=== PATIENT | male | born 1955 | race Caucasian/White ===

== ENCOUNTER 2025-05-05 09:48 | Inpatient (IN) | payer MEDICARE, MEDICAID, SELFPAY ==
[2025-05-05] VITALS (10 sets, daily range): BP systolic 116–149; BP diastolic 74–90; PULSE 63–95; RESP 16–20; TEMP 36.8–37.2; O2SAT 96–99; BMI 28.5
--- NOTE | 2025-05-05 10:00 | EKG_ITS ---
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: : [id number] Requested By: Giovanni Ortiz Order Number: [id number] Reading MD: Giovanni Ortiz Measurements Intervals [place] Rate: 81 P: 46 IA: 144 QRS: -40 QRSD: 97 T: 46 QT: 328 QTc: 383 Interpretive Statements SINUS RHYTHM LOW QRS VOLTAGE IN PRECORDIAL LEADS [QRS DEFLECTION < 1.0 mV IN CHEST LEADS] MINIMAL VOLTAGE CRITERIA FOR LVH, CONSIDER NORMAL VARIANT [MEETS CRITERIA IN ONE OF: R(aVL), S(V1), R(V5), R(V5/V6)+S(V1)] POSSIBLE ANTERIOR MYOCARDIAL INFARCTION , PROBABLY OLD [30 ms Q WAVE IN V3/V4, OR R < 0.2 mV IN V4] INFERIOR MYOCARDIAL INFARCTION , PROBABLY OLD [40+ ms Q WAVE AND/OR ST/T ABNORMALITY IN II/aVF] No previous ECG available for comparison /store/S0/[id number].pdf
--- NOTE | 2025-05-05 10:01 | PD.EDRME ---
Rapid Medical Screening Exam E Arrival date/time: 05/05/25 09:48 70-year-old male with a history of hypertension, hyperlipidemia presents to the emergency room with an elevated potassium level. Patient was sent over by his primary care provider for a potassium level of 6.6. I have greeted and performed a focused initial assessment of this patient. A comprehensive ED assessment and evaluation of the patient, analysis of all test results, and completion of the medical decision making process will be conducted by additional ED providers. Chief Complaint: General Adult/Misc Complain Vital signs: Vital Signs Temperature 98.9 F 05/05/25 09:56 Pulse Rate 81 05/05/25 09:56 Respiratory Rate 19 05/05/25 09:56 Blood Pressure 116/74 05/05/25 09:56 Pulse Oximetry (%) 96 05/05/25 09:56 Oxygen Delivery Method Room Air 05/05/25 09:56 Vital signs reviewed by provider: Yes
[2025-05-05 10:49] LABS: Basophils # (Auto) 0.1 Thou/mm3 (0.0-0.2); Basophils % (Auto) 1 % (0-2.5); Eosinophils # (Auto) 0.1 Thou/mm3 (0.0-0.5); Eosinophils % (Auto) 1 % (0-10); Hematocrit 40.6 % (41.0-53.0); Hemoglobin 13.0 g/dL (13.5-16.0); Immature Granulocytes Auto 0.02 Thou/mm3 (0.00-0.00); Lymphocytes # (Auto) 1.1 Thou/mm3 (1.0-4.8); Lymphocytes % (Auto) 12 % (10-50); Mean Corpuscular HGB Conc 32.0 g/dl (31.0-37.0); Mean Corpuscular Hemoglobin 29.4 pg (25.0-35.0); Mean Corpuscular Volume 92 fL (80-100); Monocytes # (Auto) 1.2 Thou/mm3 (0.0-0.8); Monocytes % (Auto) 13 % (0-12); Neutrophils # (Auto) 6.7 Thou/mm3 (1.8-7.7); Neutrophils % (Auto) 73 % (37-80); Nucleated Red Blood Cell # 0.00 Thou/mm3 (0.00-0.00); Nucleated Red Blood Cell % 0 /100 WBC (0); Platelet Count 266 Thou/mm3 (140-440); RDW Standard Deviation 49.7 fL (35.1-43.9); Red Blood Count 4.42 Miln/mm3 (4.50-5.90); White Blood Count 9.2 Thou/mm3 (3.8-10.6)
[2025-05-05 11:02] LABS: INR 1.0 (0.9-1.3); Partial Thromboplastin Time 28.2 Seconds (22.0-36.0); Prothrombin Time 10.8 Seconds (9.0-12.2)
[2025-05-05 11:06] LABS: B-Type Natriuretic Peptide 37 pg/mL (0-100)
[2025-05-05 11:08] LABS: Alanine Aminotransferase 24 U/L (10-49); Albumin, Serum 4.4 gm/dL (3.4-4.8); Albumin/Globulin Ratio 1.2 (1.2-2.2); Alkaline Phosphatase 114 U/L (46-116); Anion Gap 9 (7-16); Aspartate Amino Transferase 16 U/L (0-34); BUN/Creatinine Ratio 15 Ratio (12-20); Bilirubin,Total 0.3 mg/dL (0.3-1.2); Blood Urea Nitrogen 45 mg/dL (9-23); Calcium 9.0 mg/dL (8.3-10.6); Calcium (Corrected) 9.0 mg/dL (8.5-10.1); Chloride 113 mMol/L (98-107); Creatinine (Component) 3.1 mg/dL (0.6-1.3); Estimated Creatinine Clearance 25.4 mL/min (>60); Globulin 3.6 gm/dL (2.3-3.5); Glucose 101 mg/dL (74-106); Magnesium 1.6 mg/dL (1.6-2.6); Osmolality,Calculated 283 (275-295); Sodium 136 mMol/L (136-145); Total Protein 8.0 gm/dL (5.7-8.2); Troponin I < 0.020 ng/mL (0.0-0.045); eGFR 21 See Note
[2025-05-05 11:09] LABS: Collection Type, Urine Clean Catch
[2025-05-05 11:24] LABS: Bacteria,Urine 3+; Bilirubin,Urine Negative (Negative); Blood,Urine 2+ (Negative); Clarity,Urine Cloudy (Clear/Hazy); Color,Urine Orange (Lt Yel-Yel); Glucose, Urine Negative (Negative); Ketones,Urine Negative (Negative); Leukocyte Esterase,Urine Positive (Negative); Nitrite,Urine Negative (Negative); PH,Urine 6.0 (5.0-7.0); Protein,Urine 1+ (Neg - Trace); RBC,Urine 23 /hpf (0-3); Specific Gravity,Urine 1.008 (1.001-1.035); Squamous Epithelial Cell,Urine 11 /hpf (0-5); Urobilinogen,Urine Negative mg/dL (0.0-1.0); WBC,Urine 5786 /hpf (0-5)
[2025-05-05 11:52] LABS: Carbon Dioxide 13.6 mMol/L (20.0-31.0); Potassium 6.1 mMol/L (3.4-5.1)
--- NOTE | 2025-05-05 11:57 | EDNOTE_ITS ---
<Statement entered by Katja Lopez MD - 05/11/25 06:45> As co-signing physician, I was present and available for consult prn. I concur with the plan and care as documented by the midlevel provider. ED General RME/HPI General Chief complaint: General Adult/Misc Complain Stated complaint: KCL 6.6; SENT BY DR. CESPEDES Time Seen by Provider: 05/05/25 11:36 Arrival date/time: 05/05/25 09:48 RME / HPI RME / HPI narrative: 70-year-old male patient with significant history of hypertension hyperlipidemia, came in for evaluation regarding elevated potassium. Patient went to PCP yesterday and had routine lab draw, and also was referred to Dr Cespedes, did not see Dr Cespedes however patient was sent to us for potassium that is elevated. Currently patient is not having any symptoms. Patient told me that his potassium could be secondary to eating a lot of bananas and oranges. Patient is currently taking lisinopril Norvasc metoprolol and simvastatin. Related Data Home Medications ?Medication ?Instructions ?Recorded ?Confirmed acetaminophen 500 mg tablet 500 mg PO DAILY 04/10/23 0 04/11/23 amlodipine 10 mg tablet 10 mg PO QDAY 04/10/2304/11 lisinopril 10 mg tablet 10 mg PO DAILY 04/10/2303/29 metoprolol succinate 50 mg 50 mg PO DAILY 04/10/2303/29 tablet,extended release 24 hr simvastatin 20 mg tablet 20 mg PO DAILY 04/10/2303/29 Allergies Allergy/AdvReac Type Severity Reaction Status Date / Time Pork/Porcine Containing Allergy Intermediate Nausea Verified 05/05/25 09:51 Products Review of Systems Review of Systems Narrative Review of Systems: Review of system reviewed and within normal limits except mentioned in HPI ED Exam Narrative Physical exam: VITAL SIGNS: Reviewed. GENERAL APPEARANCE: Alert and interactive, follows commands, no acute distress, HEAD AND FACE: Non-traumatic. ENT: PERRL, pink conjunctivitis, eyelid no trauma, Mucous membrane moist. NECK: Supple, nontender, no nuchal rigidity. CHEST: No tenderness, no crepitus, no paradoxical movement, no retractions. LUNGS: Clear, well ventilated, symmetric, no rales, no wheezing, no ronchi, no stridor, good breath sounds bilaterally. HEART: Regular rate, regular rhythm, no murmur, no gallops. ABDOMEN: Soft, positive bowel sounds, nondistended, no guarding, nontender, no rebound, no masses, RECTAL: Deferred. GENITAL: Deferred. NEUROLOGICAL: Gross motor function intact sensory function intact, Appropriate for age. MUSCULOSKELETAL: low back nontender, full range of motion. EXTREMITIES: Nontender, full range of motion. SKIN: Color pink, dry, no rash, no lacerations, no abrasions, no contusions. LYMPHATICS: Deferred. Course Quality Measures none Orders Category Date Time Status Bedside Blood Glucose Q2HX3 Care 05/05/25 12:01 Active COVID-19 Screening Questionnaire NOW Care 05/05/25 15:19 Active Decision to Admit X1 Care 05/05/25 15:19 Active EKG (ED ONLY) *Do not use* NOW Care 05/05/25 10:00 Completed Jones [Urinary Catheter, Remove] ONCE Care 05/05/25 13:40 Active Jones [Urinary Catheter] QS Care 05/05/25 13:40 Active Consult to Nephrology Stat Cons 05/05/25 14:[address] abdomen pelvis wo con Stat Exams 05/05/25 12:15 Completed EKG (ED Only) Stat Exams 05/05/25 10:00 Draft B-Type Natriuretic Peptide Stat Lab 05/05/25 10:31 Completed CBC Stat Lab 05/05/25 10:31 Completed Comprehensive Metabolic Panel Stat Lab 05/05/25 10:31 Completed Magnesium Stat Lab 05/05/25 10:31 Completed Partial Thromboplastin Time Stat Lab 05/05/25 10:31 Completed Prothrombin Time with INR Stat Lab 05/05/25 10:31 Completed Troponin I Stat Lab 05/05/25 10:31 Completed Urinalysis Stat Lab 05/05/25 11:01 Completed ALBUTEROL RT 0.5ml [Proventil Rt 0.5ml] Med 05/05/25 12:01 Discontinued 5 mg INH X1 ONE Calcium Gluconate 10% Inj Med 05/05/25 12:01 Discontinued 1 gm IV X1 ONE Dextrose 50% Syr [D50w Syringe Abboject] Med 05/05/25 12:01 Active 25 ml IV Q15MIN PRN Dextrose 50% Syr [D50w Syringe Abboject] Med 05/05/25 12:01 Active 50 ml IV Q15MIN PRN Dextrose 50% Syr [D50w Syringe Abboject] Med 05/05/25 12:05 Discontinued 50 ml IVP X1 ONE Glucagon Inj Med 05/05/25 12:01 Active 1 mg IM Q15MIN PRN Insulin Regular Med 05/05/25 12:01 Discontinued 5 unit IV X1 ONE Sod Polystyrene Sulfon Susp [Kayexalate Susp] Med 05/05/25 12:01 Discontinued 30 gm PO X1 ONE Sodium Chloride 0.9% 1000 ml [Ns] 1,000 ml Med 05/05/25 12:15 Discontinued IV 999 mls/hr Sodium Chloride Rt Laly 0.9% [NS Rt Laly 0.9%] Med 05/05/25 12:01 Active 3 ml INH PRN PRN cefTRIAXone/D5w 1gm IV premix [Rocephin/D5w 1gm IV Med 05/05/25 12:14 Discontinued premix] 1 gm in 50 ml IV X1 Vital Signs Vital signs: Vital Signs Temperature 98.9 F 05/05/25 09:56 Pulse Rate 81 05/05/25 09:56 Respiratory Rate 19 05/05/25 09:56 Blood Pressure 116/74 05/05/25 09:56 Pulse Oximetry (%) 96 05/05/25 09:56 Oxygen Delivery Method Room Air 05/05/25 09:56 Discharge Plan Plan Patient Disposition: Admit Acute Care w/in Hospital Discharge Disposition comment: Stable Prescriptions/Referrals Prescriptions/Med Rec: No Action metoprolol succinate 50 mg tablet extended release 24 hr 50 mg PO DAILY Patient Comments: take 1 tablet by mouth once daily amlodipine 10 mg Tablet 10 mg PO QDAY simvastatin 20 mg tablet 20 mg PO DAILY Patient Comments: take 1 tablet by mouth at bedtime lisinopril 10 mg tablet 10 mg PO DAILY Patient Comments: take 1 tablet by mouth once daily acetaminophen 500 mg Tablet 500 mg PO DAILY Referrals: [facility])Antoine NP [Primary Care Provider] - In 1 week Problem List Clinical Impression: UTI (urinary tract infection), ENRIQUE (acute kidney injury), Obstructed, uropathy Patient/Caregiver Discharge Instructions Print Language: German Stand Alone Forms: [place] Award Info., Patient Portal Info Letter MDM Narrative MDM hospital course: 70-year-old male patient with significant history of hypertension hyperlipidemia, came in for evaluation regarding elevated potassium. Patient went to PCP yesterday and had routine lab draw, and also was referred to Dr Cespeeds, did not see Dr Cespedes however patient was sent to us for potassium that is elevated. Currently patient is not having any symptoms. Patient told me that his potassium could be secondary to eating a lot of bananas and oranges. Patient is currently taking lisinopril Norvasc metoprolol and simvastatin. Patient potassium today was noted to be 6.1 chloride of 113 , 13.6 creatinine 3.1 BUN 45. Urinalysis significant for UTI. Jones catheter was inserted, and draining more than [address] scan of the abdomen and pelvis showed Moderate to advanced bilateral hydronephrosis with markedly distended urinary bladder, recommend placement of urinary Jones catheter into the bladder Patient received calcium gluconate, 5 units of insulin IV, D50 water, 1 L IV fluids, Kayexalate, albuterol breathing treatment for hyperkalemia. Discussed case with marketing campaign analyst, Dr. Shepard , who advised me to asked hospitalist to admit she will consult. Discussed the case with hospitalist, who admitted the patient. Labs/Rad/Tests considered, not Ordered Describe details: See results in [facility] EKG EKG Interpretation narrative: EKG as interpreted by me showed sinus rhythm, ventricular to 81 bpm, [address] segment elevation depression noted. Lab Interpretation Lab(s) interpretation(s): See results [facility] Medication Administration(s) Medication Administration History Dextrose (Dextrose 50%-Water Inj 50 Ml Syringe) 25 ml IV Q15MIN PRN PRN Reason: BG 50-70 responsive npo pt Stop: 06/04/25 12:00 Dextrose (Dextrose 50%-Water Inj 50 Ml Syringe) 50 ml IV Q15MIN PRN PRN Reason: BG <50 OR BG <70 & pt unresponsive Stop: 06/04/25 12:00 Glucagon (Glucagon Inj 1 Mg Vial) 1 mg IM Q15MIN PRN PRN Reason: BG <70, and no IV access Sodium Chloride (Sodium Chloride Rt Laly 0.9% 3 Ml Nebu) 3 ml INH PRN PRN PRN Reason: SOLN Stop: 06/04/25 12:00 Last Admin: 05/05/25 13:24 Dose: 3 ml Documented By: DM Discontinued Medications Albuterol (Albuterol Rt 2.5 Mg/0.5 Ml Nebu) 5 mg INH X1 ONE Stop: 05/05/25 12:02 Last Admin: 05/05/25 13:25 Dose: 5 mg Documented By: DM Calcium Gluconate (Calcium Gluconate 10% Inj 1 Gm/10 Ml Vial) 1 gm IV X1 ONE Stop: 05/05/25 12:02 Last Admin: 05/05/25 12:47 Dose: 1 gm Documented By: RUBIO Dextrose (Dextrose 50%-Water Inj 50 Ml Syringe) 50 ml IVP X1 ONE Stop: 05/05/25 12:06 Last Admin: 05/05/25 12:52 Dose: 50 ml Documented By: RUBIO Ceftriaxone Sodium/Dextrose (Rocephin/D5w 1gm Iv Premix) 1 gm in 50 mls @ 100 mls/hr IV X1 ONE Stop: 05/05/25 12:43 Last Admin: 05/05/25 12:51 Dose: 100 mls/hr Documented By: RUBIO Sodium Chloride (Ns) 1,000 mls @ 999 mls/hr IV .Q1H1M ONE Stop: 05/05/25 13:15 Last Admin: 05/05/25 13:02 Dose: 999 mls/hr Documented By: RUBIO Insulin Human Regular (Insulin Hum Regular 1 Unit/0.01 Ml (Per Unit)) 5 unit IV X1 ONE Stop: 05/05/25 12:02 Last Admin: 05/05/25 13:01 Dose: 5 unit Documented By: RUBIO Co-signed By: DARI Comments: For hyperkalemia Sodium Polystyrene Sulfonate (Sod Polystyrene Sulfon Susp 15 Gm/60 Ml Btl) 30 gm PO X1 ONE Stop: 05/05/25 12:02 Last Admin: 05/05/25 12:47 Dose: 30 gm Documented By: RUBIO Diagnosis Differential diagnosis: ENRIQUE, hyper-K, UTI, obstructive uropathy Most likely dx, and/or detailed dx discussion: ENRIQUE, hyperkalemia UTI, obstructive uropathy Dispositon Disposition: Admit
--- NOTE | 2025-05-05 12:15 | XR_ITS ---
Examination: CT abdomen and pelvis without contrast. Coronal 3-D reconstructions. Sagittal 2-D reconstructions. Date and time of exam:May 05, 2025 1230 hours Comparison August 14, 2024 INDICATIONS: Elevated potassium levels on laboratory examination today, diagnosis obstructive uropathy, moderate hydronephrosis on CT study August 24, 2024 CTDI: vol (mGy): 11 DLP: (mGycm): 68 Technique: Axial images of the abdomen have been obtained, 3 mm slice thickness Intravenous contrast material has not been administered. Low dose protocols were performed. One or more of the following dose reduction techniques were used; automated exposure control, adjustment of the mA and/or KV according to patient size, use of iterative reconstruction technique. Findings: No focal liver or splenic lesions Contracted gallbladder No pancreatic mass Normal adrenal glands No bowel obstruction No pericecal inflammatory change Moderate to advanced bilateral hydronephrosis with markedly distended urinary bladder, no ureteral calculi Transverse prostate dimension 4 cm Prominent osteopenia IMPRESSION: Moderate to advanced bilateral hydronephrosis with markedly distended urinary bladder, recommend placement of urinary Jones catheter into the bladder
[2025-05-05] MEDS: CALCIUM GLUCONATE 10% INJ 1 GM/10 ML VIAL IV (12:47)
[2025-05-05] MEDS: SOD POLYSTYRENE SULFON SUSP 15 GM/60 ML BTL 30 GM PO (12:47)
[2025-05-05] MEDS: cefTRIAXone/D5w 1gm IV premix 1 GM/50 ML BAG IV (12:51)
[2025-05-05] MEDS: DEXTROSE 50%-WATER INJ 50 ML SYRINGE IVP ×2 (12:52→22:23)
[2025-05-05] MEDS: INSULIN HUM REGULAR 1 UNIT/0.01 ML (PER UNIT) 5 UNIT IV ×2 (13:01→22:16)
[2025-05-05] MEDS: SODIUM CHLORIDE 0.9% 1000 ML 1,000 ML 999 ML IV (13:02)
[2025-05-05] MEDS: SODIUM CHLORIDE RT SOL 0.9% 3 ML NEBU INH (13:24)
[2025-05-05] MEDS: ALBUTEROL RT 2.5 MG/0.5 ML NEBU 5 MG INH (13:25)
--- NOTE | 2025-05-05 15:27 | ESHP_ITS ---
<Statement entered by Brian Nelson MD - 05/05/25 19:44> I have reviewed the note and agree with the resident's assessment & plan with exceptions as below. I have personally reviewed labs, imaging, home meds/prior records, examined the patient, formulated and discussed management plan with the IM team. Patient examined at bedside today. Patient reports that he was sent to the ER after he recently did labs and he was found to have high potassium and elevated creatinine. He reports that he has no prostate issues and is able to make urine fine. He denies any urine symptoms including urinary urgency or dysuria. He does state that he eats a lot of foods that have high potassium. He sees a kidney doctor, Dr Leigh for his chronic kidney disease. Denies taking any finasteride or Flomax. He says he takes amlodipine, lisinopril, and metoprolol, however does not have a web project manager. Patient could have underlying BPH which causes postobstructive ENRIQUE. Enriquez inserted which released about 1 L of fluid. Patient blood pressure still normal at this point however we will hold on resuming other blood pressure medicines as we do not want him to think. Will hold HIGINIO at this time in setting of ENRIQUE. Will avoid nephrotoxic agents and renally dose medicines. Will order repeat renal panel at 7 PM for hyperkalemia and ENRIQUE. He was given hyperkalemia cocktail as his potassium was 6.1 in the ED. Nephrology on consult, appreciate recs. Will continue with normal saline 125 cc an hour. Patient says that he may have had diabetes but is controlled by diet. Will continue with cardiac stratification to figure out underlying cause of CKD as well. Will follow-up with labs in addition to urine Cr and sodium. Will start Flomax at this time as there is suspicion for BPH. He is show bladder distention and prostate dimension of 4 cm. Will follow-up with renal ultrasound for further characterization of kidney. Repeat hematology and chemistry in AM. #ENRIQUE #Postobstructive uropathy #? History of BPH #Hyperkalemia Brian Nelson, PGY-2 Internal Medicine Documentation for date of: 05/05/25 HPI History of Present Illness History of present illness: Patient is a 70 year old male with PMH of HTN and HLD who presented to ED on 05/05/25 due to hyperkalemia found on outpatient labs. Repeat at ED was 6.1 and treated for hyperkalemia. On CT, he was found to have urinary retention with bilateral hydronephrosis. Enriquez was inserted and over 750 mL was drained. Patient was admitted for management of post-obstructive uropathy and ENRIQUE. At time of admission, patient denies any symptoms. He states he last urinated at 9am this morning prior to going to the ED. He denies any abdominal pain, suprapubic pain, dysuria, hematuria, urinary incontinence, dribbling of urine, difficulty with initiating urination, or swelling of lower extremities compared to baseline. Denies chest pain, palpitations, or shortness of breath. Denies nausea, vomiting, or constipation. He denies any recent history of UTI. Denies recent use of antibiotics. Denies known history of BPH prior to admission. He denies ever needing a enriquez in the past. Denies any hemodialysis in the past. However, does note family history of prostate cancer in maternal uncles, but he states that he had genetic testing done in the past showing he was at low risk. ED Course: Vital signs: 116/74 mmHg, 81 HR, 19 RR, SpO2 96%. Pertinent Labs: K 6.1, Cl 113 , CO2 13.6, Cr 3.1, BUN 45, eGFR 21. UA: orange, cloudy, +leukocyte esterase, -nitrites, 2+ blood, 1+ protein, 5786 WBC, 3+ bacteria, 11 squamous epithelial cells. Imaging: - Abdomen/Pelvis CT: Moderate to advanced bilateral hydronephrosis with markedly distended urinary bladder, recommend placement of urinary Enriquez catheter into the bladder - Renal US: FINDINGS: Right kidney 15.0 cm cortex 1.4 cm Moderate hydronephrosis with multiple renal cysts, the largest 4.8 cm in the lower pole Severe scar formation Left kidney 13.1 cm cortex 1.2 cm Moderate hydronephrosis Multiple cysts, the largest in the lower pole 3.1 cm Urinary bladder is significantly distended, 1148 cc with a Enriquez catheter Prostate 28 cc no prostate nodules IMPRESSION: Moderate bilateral hydronephrosis Severely distended urinary bladder EKG: Sinus rhythm. Low QRS voltage in precordial leads. Qtc 383. Consults: Nephrology Treatments: Patient received calcium gluconate, 5 units of insulin IV, D50 water, 1 L IV fluids, Kayexalate, and albuterol breathing treatment for hyperkalemia. Admitted to IM for management of post-obstructive uropathy and ENRIQUE. Review of Systems Review of Systems Narrative Review of Systems: Review of system reviewed and within normal limits except mentioned in HPI Past Medical History Family History OTHER FAMILY HX: Prostate cancer (maternal uncles) - Per patient, had genetic testing showing low risk of prostate cancer. Surgical History OTHER SURGICAL HX: Appendectomy Social History SOCIAL: Denies alcohol use currently. Tried tobacco briefly in the past. He states he stopped due to dislike of taste. LIVES WITH: Alone Past Medical History Comments PMH COMMENT: Rheumatic fever (diagnosed age 9) Diet-controlled T2DM HTN HLD Exam Vital Signs Temp Pulse Resp BP Pulse Ox O2 Del Method 98.2 F 72 16 131/81 H 99 Room Air 05/05/25 13:55 05/05/25 13:55 05/05/25 13:55 05/05/25 13:55 05/05/25 13:55 05/05/25 13:55 Narrative Exam GENERAL: A&OX3. Obese male. Laying comfortably without acute distress. HEENT: Normocephalic. Moist mucous membranes. No scleral icterus. CV: Regular rate and rhythm. S1 and S2 heard. PULM: No accessory muscle use. CTAB. No wheezing or crackles. ABDOMEN: Soft and non-distended. No tenderness to palpation of all quadrants. No rebound or guarding. : Enriquez in place without surrounding bleeding or erythema. NEURO: Moving all extremities spontaneously. No aphasia. No facial asymmetry. SKIN: Warm and dry. PSYCH: Cooperative with exam. Results: Labs 05/06/25 04:52 05/06/25 12:20 Labs: Short CBC 05/05/25 Range/Units 10:31 WBC 9.2 (3.8-10.6) Thou/mm3 Hgb 13.0 L (13.5-16.0) g/dL Hct 40.6 L (41.0-53.0) % Plt Count 266 (140-440) Thou/mm3 BMP 05/05/25 10:31 Sodium 136 Potassium 6.1 H* Chloride 113 H Carbon Dioxide 13.6 L* BUN 45 H Creatinine 3.1 H Glucose 101 Calcium 9.0 Cardiac Enzymes 05/05/25 Range/Units 10:31 Troponin I < 0.020 (0.0-0.045) ng/mL Liver Function 05/05/25 Range/Units 10:31 Total Bilirubin 0.3 (0.3-1.2) mg/dL AST 16 (0-34) U/L ALT 24 (10-49) U/L Alkaline Phosphatase 114 (46-116) U/L Albumin 4.4 (3.4-4.8) gm/dL Urine 05/05/25 Range/Units 11:01 Urine Color [place] A (Lt Yel-Yel) Urine Clarity Cloudy A (Clear/Hazy) Urine pH 6.0 (5.0-7.0) Ur Specific [place] 1.008 (1.001-1.035) Urine Protein 1+ A (Neg - Trace) Urine Glucose (UA) Negative (Negative) Quality Measures Quality Measures VTE prophylaxis Advance care planning discussed with:: patient Medications Home Medications and Allergies Home Medications ?Medication ?Instructions ?Recorded ?Confirmed ?Type amlodipine 10 mg tablet 10 mg PO QDAY 04/10/2305/05 History lisinopril 10 mg tablet 10 mg PO DAILY 04/10/2304/08 History metoprolol succinate 50 mg 50 mg PO DAILY 04/10/23 History tablet,extended release 24 hr simvastatin 20 mg tablet 20 mg PO DAILY 04/10/2304/08 History Allergies Allergy/AdvReac Type Severity Reaction Status Date / Time Pork/Porcine Containing Allergy Intermediate Nausea Verified 05/05/25 09:51 Products Visit Medications Dextrose (Dextrose 50%-Water Inj 50 Ml Syringe) 25 ml IV Q15MIN PRN PRN Reason: BG 50-70 responsive npo pt Stop: 06/04/25 12:00 Dextrose (Dextrose 50%-Water Inj 50 Ml Syringe) 50 ml IV Q15MIN PRN PRN Reason: BG <50 OR BG <70 & pt unresponsive Stop: 06/04/25 12:00 Glucagon (Glucagon Inj 1 Mg Vial) 1 mg IM Q15MIN PRN PRN Reason: BG <70, and no IV access Sodium Chloride (Sodium Chloride Rt Laly 0.9% 3 Ml Nebu) 3 ml INH PRN PRN PRN Reason: SOLN Stop: 06/04/25 12:00 Last Admin: 05/05/25 13:24 Dose: 3 ml Discontinued Medications Albuterol (Albuterol Rt 2.5 Mg/0.5 Ml Nebu) 5 mg INH X1 ONE Stop: 05/05/25 12:02 Last Admin: 05/05/25 13:25 Dose: 5 mg Calcium Gluconate (Calcium Gluconate 10% Inj 1 Gm/10 Ml Vial) 1 gm IV X1 ONE Stop: 05/05/25 12:02 Last Admin: 05/05/25 12:47 Dose: 1 gm Dextrose (Dextrose 50%-Water Inj 50 Ml Syringe) 50 ml IVP X1 ONE Stop: 05/05/25 12:06 Last Admin: 05/05/25 12:52 Dose: 50 ml Ceftriaxone Sodium/Dextrose (Rocephin/D5w 1gm Iv Premix) 1 gm in 50 mls @ 100 mls/hr IV X1 ONE Stop: 05/05/25 12:43 Last Admin: 05/05/25 12:51 Dose: 100 mls/hr Sodium Chloride (Ns) 1,000 mls @ 999 mls/hr IV .Q1H1M ONE Stop: 05/05/25 13:15 Last Admin: 05/05/25 13:02 Dose: 999 mls/hr Insulin Human Regular (Insulin Hum Regular 1 Unit/0.01 Ml (Per Unit)) 5 unit IV X1 ONE Stop: 05/05/25 12:02 Last Admin: 05/05/25 13:01 Dose: 5 unit Sodium Polystyrene Sulfonate (Sod Polystyrene Sulfon Susp 15 Gm/60 Ml Btl) 30 gm PO X1 ONE Stop: 05/05/25 12:02 Last Admin: 05/05/25 12:47 Dose: 30 gm Assessment & Plan Plan Assessment Patient is a 70 year old male with PMH of HTN and HLD who presented to ED on 05/05/25 for treatment of hyperkalemia up to 6.6 on outpatient labs. Found to have distended bladder and bilateral hydronephrosis on CT and enriquez placed with over 750 mL drained. Patient was admitted for management of post-obstructive uropathy and ENRIQUE. #ENRIQUE 2/2 #Post-obstructive uropathy with bilateral hydronephrosis Found to have distended bladder and bilateral hydronephrosis on CT and over 1L on pre-void bladder scan, resulting in ENRIQUE. Over 750 mL cloudy urine drained following insertion of enriquez. UA with positive leukocyte esterase, negative nitrite, 2+ blood, 1+ protein, 5786 WBC, and 3+ bacteria. However, presence of bacteria could be contaminant given presence of squamous epithelial cells in UA. Cr 3.1, CrCl 25.4, and eGFR of 21. Follows with outpatient Nephrology, Dr. Leigh. Plan: - Nephrology consulted. Appreciate recs (). - Enriquez in place. - Repeat CMP at 1900. - Continue to trend Mg, K, and renal function. - Check TSH, PT/INR - Start Flomax 0.4 mg po QD - Start maintenance fluids - Strict I/Os - Renally dose medication - Urine creatinine and sodium - Flomax 0.4 mg at bedtime #Hyperkalemia Treated in ED. Potassium was 6.6 on outpatient labs and 6.1 in the ED. Patient was asymptomatic. Suspect to be secondary to severe urinary retention with possible factor of increased potassium intake Given Insulin, breathing tx, Kayxelate 30 gm in ED - Recheck CMP at 1900. #Hypertension On metoprolol 50 mg po QD, amlodipine 10 mg po QD, and lisinopril 10 mg po QD at home. - Will hold off on restarting home medications at this time, given large amount of fluid loss. - May consider restarting home metoprolol or amlodipine in the future. Hold off on lisinopril given ENRIQUE. #T2DM Diet-controlled, per patient. - A1c ordered #Health Maintenance Disposition: Med tele DVT prophylaxis: Heparin GI prophylaxis: None Indicated at this time Diet: Renal CODE STATUS: DNR Case discussed with my attending Dr. Serrano, and senior resident, Dr. Omar Garcia, OMS4 Attending Provider Attestation/Addendum Patient admitted for obstructive uropathy with ENRIQUE. Enriquez catheter insertion relieve the obstruction. The patient was hyperkalemic on admission. Will need to correct potassium. Patient will need cardiac monitoring. I discussed with and supervised the resident physician who took care of this patient. I agree with the assessment and plan as above.
--- NOTE | 2025-05-05 16:20 | PD.RESCONSUL ---
HPI Data of Consult Consult date: 05/05/25 Primary Care Provider: Antoine Toure([facility]), BEHAVIORAL SPECIALIST Consult Narrative Reason for consult: ENRIQUE, hyperkalemia History of present illness: Nephrology coverage for Dr Leigh Ronald Garcia is 70 yr male with PMH of HTN, hyperlipidemia, CKD who came to ED after his PCP saw potassium of 6.6 on outpatient labs yesterday. He follows with Dr. Leigh for CKD. He denied getting any dialysis in the past. Today patient also denies any chest pain, SOB, dizziness, dysuria, LE swelling, or constipation. He is compliant with medications. States that his BP is controlled at home. He endorses normal urine output. States that he typically drinks about 5-6 cups of water/day. No major chagnes in diet. Has not had any workup yet for his declining kidney function. Family history significant for kideny disease in his father who did require dialysis. In ED, vitals were stable. CBC stable. CMP showed potassium 6.1, chloride 13.6, BUN 45, Cr 3.1, GFR 21, Mag 1.6, calcium 9.0, UA positive for UTI and hematuria. He was given kayexalate, 5 units insulin, and albuterol while in the ED. Enriquez was placed. Nephrology consulted for hyperkalemia and ENRIQUE. PMH: as noted above PSH: appendectomy FamHx: noted above Social: lives at his house in [place], denies smoking or drinking Meds: amlodpine 10 mg daily, lisinopril 10 mg daily, and metoprolol succinate 50mg daily Allergies: NKDA cc:: cc: Review of Systems Review of Systems Systems Reviewed: All systems reviewed, normal except as documented Exam Vital Signs Temp Pulse Resp BP Pulse Ox O2 Del Method 98.2 F 72 16 131/81 H 99 Room Air 05/05/25 13:55 05/05/25 13:55 05/05/25 13:55 05/05/25 13:55 05/05/25 13:55 05/05/25 13:55 Narrative Exam General: middle age appearing male, No acute distress, cooperative HEENT: NCAT, No JVD noted. Mucosa moist. Pupils are equal and reactive to light bilaterally Cardiovascular: Normal S1 and S2. Regular rate and rhythm. Respiratory: Lungs are clear to auscultation bilaterally. No wheezing or crackles heard. Abdomen: Soft, nontender, not distended, normal bowel sounds. : enriquez cath, light urine color Skin: Warm to touch, dry, no rashes noted Musculoskeletal: No gross injuries. Able to move all 4 extremities. No pitting edema Neuro: Alert and oriented x3. No focal neuro deficits. Psych: Normal affect and mood Results Labs 05/06/25 04:52 05/06/25 04:52 Labs: Short CBC 05/05/25 Range/Units 10:31 WBC 9.2 (3.8-10.6) Thou/mm3 Hgb 13.0 L (13.5-16.0) g/dL Hct 40.6 L (41.0-53.0) % Plt Count 266 (140-440) Thou/mm3 BMP 05/05/25 10:31 Sodium 136 Potassium 6.1 H* Chloride 113 H Carbon Dioxide 13.6 L* BUN 45 H Creatinine 3.1 H Glucose 101 Calcium 9.0 Cardiac Enzymes 05/05/25 Range/Units 10:31 Troponin I < 0.020 (0.0-0.045) ng/mL Liver Function 05/05/25 Range/Units 10:31 Total Bilirubin 0.3 (0.3-1.2) mg/dL AST 16 (0-34) U/L ALT 24 (10-49) U/L Alkaline Phosphatase 114 (46-116) U/L Albumin 4.4 (3.4-4.8) gm/dL Urine 05/05/25 Range/Units 11:01 Urine Color [place] A (Lt Yel-Yel) Urine Clarity Cloudy A (Clear/Hazy) Urine pH 6.0 (5.0-7.0) Ur Specific [place] 1.008 (1.001-1.035) Urine Protein 1+ A (Neg - Trace) Urine Glucose (UA) Negative (Negative) Quality Measures Quality Measures VTE prophylaxis Advance care planning discussed with:: patient Medications Home Medications and Allergies Home Medications ?Medication ?Instructions ?Recorded ?Confirmed ?Type amlodipine 10 mg tablet 10 mg PO QDAY 04/10/23 05/05/25 History lisinopril 10 mg tablet 10 mg PO DAILY 04/10/23 05/05/25 History metoprolol succinate 50 mg 50 mg PO DAILY 04/10/23 05/05/25 History tablet,extended release 24 hr simvastatin 20 mg tablet 20 mg PO DAILY 04/10/23 05/05/25 History Allergies Allergy/AdvReac Type Severity Reaction Status Date / Time Pork/Porcine Containing Allergy Intermediate Nausea Verified 05/05/25 09:51 Products Visit Medications Dextrose (Dextrose 50%-Water Inj 50 Ml Syringe) 25 ml IV Q15MIN PRN PRN Reason: BG 50-70 responsive npo pt Stop: 06/04/25 12:00 Dextrose (Dextrose 50%-Water Inj 50 Ml Syringe) 50 ml IV Q15MIN PRN PRN Reason: BG <50 OR BG <70 & pt unresponsive Stop: 06/04/25 12:00 Glucagon (Glucagon Inj 1 Mg Vial) 1 mg IM Q15MIN PRN PRN Reason: BG <70, and no IV access Sodium Chloride (Sodium Chloride Rt Laly 0.9% 3 Ml Nebu) 3 ml INH PRN PRN PRN Reason: SOLN Stop: 06/04/25 12:00 Last Admin: 05/05/25 13:24 Dose: 3 ml Discontinued Medications Albuterol (Albuterol Rt 2.5 Mg/0.5 Ml Nebu) 5 mg INH X1 ONE Stop: 05/05/25 12:02 Last Admin: 05/05/25 13:25 Dose: 5 mg Calcium Gluconate (Calcium Gluconate 10% Inj 1 Gm/10 Ml Vial) 1 gm IV X1 ONE Stop: 05/05/25 12:02 Last Admin: 05/05/25 12:47 Dose: 1 gm Dextrose (Dextrose 50%-Water Inj 50 Ml Syringe) 50 ml IVP X1 ONE Stop: 05/05/25 12:06 Last Admin: 05/05/25 12:52 Dose: 50 ml Ceftriaxone Sodium/Dextrose (Rocephin/D5w 1gm Iv Premix) 1 gm in 50 mls @ 100 mls/hr IV X1 ONE Stop: 05/05/25 12:43 Last Admin: 05/05/25 12:51 Dose: 100 mls/hr Sodium Chloride (Ns) 1,000 mls @ 999 mls/hr IV .Q1H1M ONE Stop: 05/05/25 13:15 Last Admin: 05/05/25 13:02 Dose: 999 mls/hr Insulin Human Regular (Insulin Hum Regular 1 Unit/0.01 Ml (Per Unit)) 5 unit IV X1 ONE Stop: 05/05/25 12:02 Last Admin: 05/05/25 13:01 Dose: 5 unit Sodium Polystyrene Sulfonate (Sod Polystyrene Sulfon Susp 15 Gm/60 Ml Btl) 30 gm PO X1 ONE Stop: 05/05/25 12:02 Last Admin: 05/05/25 12:47 Dose: 30 gm Assessment & Plan Plan Ronald Garcia is a 70 year old male with PMHx of HTN, HLD, and CKD presenting with asymptomatic hyperkalemia. #Hyperkalemia #Complicated UTI #bilateral hydronephrosis #ENRIQUE # Metabolic acidosis-suspect RTA from underlying CKD. Hyperkalemia possibly due to medication (lisinopril) in the setting of ENRIQUE on CKD. CT revealed urinary retention with bilateral hydronephrosis with normal sized prostate. Enriquez placed with significant urine output. Patient denies LUTS, pain, or other symptoms. Denies recent UTI. Vital signs stable. Urinalysis showed evidence of UTI, suspecting as another possible cause of ENRIQUE. Patient was given Kayexalate, Calcium gluconate, albuterol and insulin for the hyperkalemia in ER Outpatient potassium was 6.6, in ED potassium was 6.1. BUN 45, Cr 3.1, GFR 21, Mag 1.6, calcium 9.0. Plan: -hold lisinopril for now -monitor serial potassium levels. if persistently elevated, consider dietary or medication factors. -monitor urine output -strict I/Os -trend cr -Ordered Bilateral Renal US with Prostate US imaging -Avoid nephrotoxic agents -Renally dose medication -maintainence fluids NS 142cc/hr #HTN Patient takes amlodpine 10 mg daily, lisinopril 10 mg daily, and metoprolol succinate 50mg daily. -hold lisinopril -resume other medications Patient plan of care was discussed with the attending physician, Dr. Drea Escalona MD PGY-1 Attending Provider Attestation/Addendum Patient seen and examined with resident physician Dr. Escalona. Note reviewed, agree with findings and recommendations with the changes made. Renal coverage for Dr Leigh. Patient with underlying CKD, hypertension, dyslipidemia. Noted hyperchloremic nongap metabolic acidosis with ENRIQUE. Patient treated for hyperkalemia in the ED. Check a urine anion gap. Suspect RTA. Added bicarbonate. Thank you Dr. Jefferson for allowing me to participate in the care of Mr. Garcia
--- NOTE | 2025-05-05 16:26 | XR_ITS ---
Examination: Retroperitoneal ultrasound, complete Technique: Multiple high resolution grayscale images of the retroperitoneum obtained, including kidneys and bladder. Exam date and time:May 05, 2025, 7002 hours INDICATIONS: Elevated potassium levels, CT abdomen and pelvis today moderately advanced bilateral hydronephrosis with markedly distended urinary bladder FINDINGS: Right kidney 15.0 cm cortex 1.4 cm Moderate hydronephrosis with multiple renal cysts, the largest 4.8 cm in the lower pole Severe scar formation Left kidney 13.1 cm cortex 1.2 cm Moderate hydronephrosis Multiple cysts, the largest in the lower pole 3.1 cm Urinary bladder is significantly distended, 1148 cc with a Jones catheter Prostate 28 cc no prostate nodules IMPRESSION: Moderate bilateral hydronephrosis Severely distended urinary bladder
[2025-05-05] MEDS: SODIUM CHLORIDE 0.9% 1000 ML 1,000 ML 125 ML IV (18:04)
[2025-05-05 19:36] LABS: Alanine Aminotransferase 25 U/L (10-49); Albumin, Serum 4.3 gm/dL (3.4-4.8); Albumin/Globulin Ratio 1.2 (1.2-2.2); Alkaline Phosphatase 107 U/L (46-116); Aspartate Amino Transferase 20 U/L (0-34); BUN/Creatinine Ratio 17 Ratio (12-20); Bilirubin,Total 0.3 mg/dL (0.3-1.2); Blood Urea Nitrogen 47 mg/dL (9-23); Calcium 9.6 mg/dL (8.3-10.6); Calcium (Corrected) 9.6 mg/dL (8.5-10.1); Chloride 117 mMol/L (98-107); Creatinine (Component) 2.7 mg/dL (0.6-1.3); Estimated Creatinine Clearance 29.2 mL/min (>60); Globulin 3.5 gm/dL (2.3-3.5); Glucose 87 mg/dL (74-106); Osmolality,Calculated 292 (275-295); Potassium 5.6 mMol/L (3.4-5.1); Sodium 141 mMol/L (136-145); Total Protein 7.8 gm/dL (5.7-8.2); eGFR 25 See Note
[2025-05-05 19:37] LABS: Anion Gap 9 (7-16); Carbon Dioxide 15.1 mMol/L (20.0-31.0)
[2025-05-05 20:28] LABS: Creatinine,Random Urine 39 mg/dL (30-125); Sodium,Urine Random 70.7 mMol/L (20.0-110.0)
[2025-05-05] MEDS: TAMSULOSIN HCL 0.4 MG CAPSULE PO (22:23)
[2025-05-05] MEDS: ALBUTEROL/IPRATROPIUM (Duoneb) RT SOL 3 ML NEBU INH (22:25)
[2025-05-06] VITALS (8 sets, daily range): BP systolic 101–153; BP diastolic 70–84; PULSE 75–86; RESP 18–19; TEMP 36.2–36.9; O2SAT 92–98
[2025-05-06] MEDS: SODIUM CHLORIDE 0.9% 1000 ML 1,000 ML 125 ML IV (02:05)
[2025-05-06 06:08] LABS: Glucose Estimated Average 126 mg/dL (80-131); Hemoglobin A1C 6.0 % Hgb (4.8-6.0)
[2025-05-06 06:09] LABS: INR 1.0 (0.9-1.3); Partial Thromboplastin Time 28.7 Seconds (22.0-36.0); Prothrombin Time 11.1 Seconds (9.0-12.2)
[2025-05-06 06:12] LABS: Basophils # (Auto) 0.1 Thou/mm3 (0.0-0.2); Basophils % (Auto) 1 % (0-2.5); Eosinophils # (Auto) 0.1 Thou/mm3 (0.0-0.5); Eosinophils % (Auto) 1 % (0-10); Hematocrit 39.5 % (41.0-53.0); Hemoglobin 12.6 g/dL (13.5-16.0); Immature Granulocytes Auto 0.03 Thou/mm3 (0.00-0.00); Lymphocytes # (Auto) 1.0 Thou/mm3 (1.0-4.8); Lymphocytes % (Auto) 10 % (10-50); Mean Corpuscular HGB Conc 31.9 g/dl (31.0-37.0); Mean Corpuscular Hemoglobin 29.5 pg (25.0-35.0); Mean Corpuscular Volume 93 fL (80-100); Monocytes # (Auto) 1.2 Thou/mm3 (0.0-0.8); Monocytes % (Auto) 12 % (0-12); Neutrophils # (Auto) 7.4 Thou/mm3 (1.8-7.7); Neutrophils % (Auto) 76 % (37-80); Nucleated Red Blood Cell # 0.00 Thou/mm3 (0.00-0.00); Nucleated Red Blood Cell % 0 /100 WBC (0); Platelet Count 228 Thou/mm3 (140-440); RDW Standard Deviation 50.1 fL (35.1-43.9); Red Blood Count 4.27 Miln/mm3 (4.50-5.90); White Blood Count 9.7 Thou/mm3 (3.8-10.6)
[2025-05-06 06:17] LABS: Alanine Aminotransferase 20 U/L (10-49); Albumin, Serum 4.1 gm/dL (3.4-4.8); Albumin/Globulin Ratio 1.3 (1.2-2.2); Alkaline Phosphatase 102 U/L (46-116); Anion Gap 10 (7-16); Aspartate Amino Transferase 13 U/L (0-34); BUN/Creatinine Ratio 16 Ratio (12-20); Bilirubin,Total 0.4 mg/dL (0.3-1.2); Blood Urea Nitrogen 41 mg/dL (9-23); Calcium 8.7 mg/dL (8.3-10.6); Calcium (Corrected) 8.7 mg/dL (8.5-10.1); Carbon Dioxide 15.1 mMol/L (20.0-31.0); Cardiac Risk Estimate 2.6 RATIO (4.0-6.7); Chloride 118 mMol/L (98-107); Cholesterol 113 mg/dL (132-200); Creatinine (Component) 2.6 mg/dL (0.6-1.3); Estimated Creatinine Clearance 33.1 mL/min (>60); Globulin 3.2 gm/dL (2.3-3.5); Glucose 82 mg/dL (74-106); HDL Cholesterol 43 mg/dL (40-60); LDL Cholesterol,Calculated 55 mg/dL (0-130); Magnesium 1.4 mg/dL (1.6-2.6); Osmolality,Calculated 294 (275-295); Phosphorous 4.3 mg/dL (2.4-5.1); Potassium 5.0 mMol/L (3.4-5.1); Sodium 143 mMol/L (136-145); Thyroid Stimulating Hormone 1.21 uIU/mL (0.55-4.78); Total Protein 7.3 gm/dL (5.7-8.2); Triglycerides 74 mg/dL (30-150); eGFR 26 See Note
--- NOTE | 2025-05-06 09:05 | ESPR_ITS ---
<Statement entered by Brian Nelson MD - 05/06/25 16:41> I have reviewed the note and agree with the resident's assessment & plan with exceptions as below. I have personally reviewed labs, imaging, home meds/prior records, examined the patient, formulated and discussed management plan with the IM team. Patient examined at bedside today. Patient continues to improve in addition with his renal function, patient continues to have good urine output. Continue with Flomax at this time. Will add Bicitra at there is concern for RTA. Nephrology on consult, appreciate recommendations. Anticipate discharge in the next 24 to 40 hours. Repeat hematology, chemistry and electrolytes in AM. Brian Nelson, PGY-2 Internal Medicine Documentation for date of: 05/06/25 Subjective Subjective Interval history: Patient was examined at bedside this morning. No acute events overnight. Patient states he slept well last night and denies any complaints at this time. He denies any pain with the leal or dysuria. He denies fever, chills, chest pain or shortness of breath. Denies nausea or vomiting. Exam Vital Signs Temp Pulse Resp BP Pulse Ox O2 Del Method 97.1 F 78 18 153/84 H 96 Room Air 05/06/25 08:00 05/06/25 08:00 05/06/25 08:00 05/06/25 08:00 05/06/25 08:00 05/06/25 08:00 Narrative Exam GENERAL: A&OX3. No acute distress. Obese male. Laying comfortably in bed. HEENT: Normocephalic. No scleral icterus. CV: Regular rate and rhythm. S1 and S2 heard. PULM: No accessory muscle use. CTAB. No wheezing or crackles. ABDOMEN: Soft and non-distended. EXTREMITIES: No lower extremity edema. NEURO: Moving all extremities spontaneously. No aphasia. No facial asymmetry. SKIN: Warm and dry. PSYCH: Cooperative with exam. LEAL BAG: Blood and white-yellow sediment noted in leal bag. Objective Labs 05/07/25 05:33 05/07/25 05:33 Labs: Laboratory Results - last 24 hr 05/05/25 05/05/25 05/05/25 10:31 11:01 18:40 WBC 9.2 RBC 4.42 L Hgb 13.0 L Hct 40.6 L MCV 92 MCH 29.4 MCHC 32.0 RDW Std Deviation 49.7 H Plt Count 266 Neut % (Auto) 73 Lymph % (Auto) 12 [place] % (Auto) 13 H Eos % (Auto) 1 Baso % (Auto) 1 Neut # (Auto) 6.7 Lymph # (Auto) 1.1 [place] # (Auto) 1.2 H Eos # (Auto) 0.1 Baso # (Auto) 0.1 Immature Gran # (Auto) 0.02 H Absolute Nucleated RBC 0.00 Immature Gran % 0 Nucleated RBC % 0 PT 10.8 INR 1.0 APTT 28.2 Sodium 136 141 Potassium 6.1 H* 5.6 H D Chloride 113 H 117 H Carbon Dioxide 13.6 L* 15.1 L Anion Gap 9 9 BUN 45 H 47 H Creatinine 3.1 H 2.7 H Estim Creat Clear Calc 25.4 L 29.2 L eGFR 21 L 25 L BUN/Creatinine Ratio 15 17 Glucose [address] Glu mg/dL Hemoglobin A1c Calculated Osmolality 283 292 Calcium 9.0 9.6 Corrected Calcium 9.0 9.6 Phosphorus Magnesium 1.6 Total Bilirubin 0.3 0.3 AST 16 20 ALT 24 25 Alkaline Phosphatase 114 107 Troponin I < 0.020 B-Natriuretic Peptide 37 Total Protein 8.0 7.8 Albumin 4.4 4.3 Globulin 3.6 H 3.5 Albumin/Globulin Ratio 1.2 1.2 Triglycerides Cholesterol LDL Cholesterol, Calc HDL Cholesterol Cholesterol/HDL Ratio TSH Ur Collection Type Clean Catch Urine Color [place] A Urine Clarity Cloudy A Urine pH 6.0 Ur Specific [place] 1.008 Urine Protein 1+ A Urine Glucose (UA) Negative Urine Ketones Negative Urine Blood 2+ A Urine Nitrite Negative Urine Bilirubin Negative Urine Urobilinogen (Auto) Negative Ur Leukocyte Esterase Positive Urine RBC 23 H Urine WBC 5786 H Ur Squamous Epith Cells 11 H Urine Bacteria 3+ A Ur Random Creatinine 39 Ur Random Sodium 70.7 05/06/25 04:52 WBC 9.7 RBC 4.27 L Hgb 12.6 L Hct 39.5 L MCV 93 MCH 29.5 MCHC 31.9 RDW Std Deviation 50.1 H Plt Count 228 D Neut % (Auto) 76 Lymph % (Auto) 10 [place] % (Auto) 12 Eos % (Auto) 1 Baso % (Auto) 1 Neut # (Auto) 7.4 Lymph # (Auto) 1.0 [place] # (Auto) 1.2 H Eos # (Auto) 0.1 Baso # (Auto) 0.1 Immature Gran # (Auto) 0.03 H Absolute Nucleated RBC 0.00 Immature Gran % 0 Nucleated RBC % 0 PT 11.1 INR 1.0 APTT 28.7 Sodium 143 Potassium 5.0 D Chloride 118 H Carbon Dioxide 15.1 L Anion Gap 10 BUN 41 H Creatinine 2.6 H Estim Creat Clear Calc 33.1 L eGFR 26 L BUN/Creatinine Ratio [address] Glu mg/dL 126 Hemoglobin A1c 6.0 Calculated Osmolality 294 Calcium 8.7 Corrected Calcium 8.7 Phosphorus 4.3 Magnesium 1.4 L Total Bilirubin 0.4 AST 13 ALT 20 Alkaline Phosphatase 102 Troponin I B-Natriuretic Peptide Total Protein 7.3 Albumin 4.1 Globulin 3.2 Albumin/Globulin Ratio 1.3 Triglycerides 74 Cholesterol 113 L LDL Cholesterol, Calc 55 HDL Cholesterol 43 Cholesterol/HDL Ratio 2.6 L TSH 1.21 Ur Collection Type Urine Color Urine Clarity Urine pH Ur Specific [place] Urine Protein Urine Glucose (UA) Urine Ketones Urine Blood Urine Nitrite Urine Bilirubin Urine Urobilinogen (Auto) Ur Leukocyte Esterase Urine RBC Urine WBC Ur Squamous Epith Cells Urine Bacteria Ur Random Creatinine Ur Random Sodium Quality Measures Quality Measures VTE prophylaxis Advance care planning discussed with:: patient Assessment & Plan Assessment Current Active Medications: Generic Name Dose Route Start Last Admin Trade Name Freq PRN Reason Stop Dose Admin Acetaminophen 650 mg 05/05/25 17:07 Acetaminophen 325 Mg Tablet PO 06/04/25 17:06 Q6H PRN Fever >100 or pain 1-3 Hydrocodone Bitart/Acetaminophen 1 tab 05/05/25 17:12 Hydrocodone/Apap 5/325 Tablet PO 05/10/25 17:11 Q4HR PRN PAIN SCALE 4-6 (Moderate Albuterol/Ipratropium 3 ml 05/05/25 17:07 05/05/25 22:25 Albuterol/Ipratropium (Duoneb) Rt Laly 3 Ml Nebu INH 06/04/25 18:59 3 ml Q6HRRT PRN Administration wheezing Amlodipine Besylate 10 mg 05/06/25 09:00 Amlodipine Besylate 5 Mg Tablet PO 06/05/25 08:59 QDAY SINDY Atorvastatin Calcium 10 mg 05/06/25 21:00 Atorvastatin Calcium 10 Mg Tablet PO 06/05/25 20:59 HS SINDY Citric Acid/Sodium Citrate 30 ml 05/06/25 09:00 Citric Acid/Sodium Citr 15 Ml Udc (Bicitra) PO 06/05/25 08:59 BID SINDY Dextrose 25 ml 05/05/25 12:01 Dextrose 50%-Water Inj 50 Ml Syringe IV 06/04/25 12:00 Q15MIN PRN BG 50-70 responsive npo pt Dextrose 50 ml 05/05/25 12:01 Dextrose 50%-Water Inj 50 Ml Syringe IV 06/04/25 12:00 Q15MIN PRN BG <50 OR BG <70 & pt unresponsive Glucagon 1 mg 05/05/25 12:01 Glucagon Inj 1 Mg Vial IM Q15MIN PRN BG <70, and no IV access Sodium Chloride 1,000 mls @ 125 mls/hr 05/05/25 17:15 05/06/25 02:05 Ns IV 06/04/25 17:14 125 mls/hr .Q8H SINDY Administration Metoprolol Succinate 50 mg 05/06/25 09:00 Metoprolol Succinate Xl 25 Mg Tabcr PO 06/05/25 08:59 QDAY SINDY Ondansetron HCl 4 mg 05/05/25 17:07 Ondansetron Inj 2 Mg/Ml Inj 2 Ml IVP 06/04/25 17:06 Q6H PRN NAUSEA OR VOMITING Protocol Sennosides 1 tab 05/05/25 17:07 Senna Tablet PO 06/04/25 17:06 QDAY PRN constipation Protocol Sodium Chloride 3 ml 05/05/25 12:01 05/05/25 13:24 Sodium Chloride Rt Laly 0.9% 3 Ml Nebu INH 06/04/25 12:00 3 ml PRN PRN Administration SOLN Tamsulosin HCl 0.4 mg 05/05/25 21:00 05/05/25 22:23 Tamsulosin Hcl 0.4 Mg Capsule PO 06/04/25 20:59 0.4 mg HS SINDY Administration Plan Assessment Patient is a 70 year old male with PMH of HTN and HLD who presented to ED on 05/05/25 for treatment of hyperkalemia up to 6.6 on outpatient labs. Found to have distended bladder and bilateral hydronephrosis on CT and leal placed with over 750 mL drained. Patient was admitted for management of post-obstructive uropathy and ENRIQUE. #ENRIQUE 2/2 #Post-obstructive uropathy with bilateral hydronephrosis # ? CKD Found to have distended bladder and bilateral hydronephrosis on CT and over 1L on pre-void bladder scan, resulting in ENRIQUE. Over 750 mL cloudy urine drained following insertion of leal. UA with positive leukocyte esterase, negative nitrite, 2+ blood, 1+ protein, 5786 WBC, and 3+ bacteria. Possible concern for UTI. However, presence of bacteria could be contaminant given presence of squamous epithelial cells in UA. Cr 2.6 today, was 3.1 yesterday. Follows with outpatient Nephrology, Dr. Leigh. Plan: - Nephrology consulted. Appreciate recs (). - Leal in place. - Continue to trend Mg, K, and renal function. - Follow up on urine creatinine and sodium - Continue maintenance fluids - Strict I/Os - Renally dose medication - Urine culture pending - Continue bicitra 30ml PO BID - Continue Flomax 0.4 mg po QHS #Hyperkalemia Treated in ED with Insulin, breathing tx, Kayxelate 30 gm. Potassium was 6.6 on outpatient labs and 6.1 in the ED. Patient was asymptomatic. Suspect to be secondary to severe urinary retention with possible factor of increased potassium intake. Could also be 2/2 lisinopril. - Continue to trend. #Hypertension Elevated SBP of 152 this morning. On metoprolol succinate 50 mg po QD, amlodipine 10 mg po QD, and lisinopril 10 mg po QD at home. - Restart home dose of metoprolol succinate 50 mg po QD - Restart home dose of amlodipine 10 mg po QD - Hold off on lisinopril in setting of ENRIQUE. #T2DM Diet-controlled, per patient. A1c 6.0% on 05/05/25. Fasting glucose of 82 this morning. #HLD Patient reports he stopped taking simvastatin several months ago due to having cholesterol levels at goal. Lipid panel on 05/05/25 was unremarkable. - Hold off on starting Lipitor at this time. #Health Maintenance Disposition: Med tele DVT prophylaxis: Heparin GI prophylaxis: None Indicated at this time Diet: Renal CODE STATUS: DNR Case discussed with my attending Dr. Serrano, and senior resident, Dr. Omar Garcia, OMS4 Attending Provider Attestation/Addendum Patient was seen for ENRIQUE, with hyperkalemia. Pt has improving obstructive uropathy. Patient was seen with housestaff.
[2025-05-06] MEDS: CITRIC ACID/SODIUM CITR 15 ML UDC (BICITRA) 30 ML PO ×2 (09:11→20:19)
[2025-05-06] MEDS: METOPROLOL SUCCINATE XL 25 MG TABCR 50 MG PO (09:11)
--- NOTE | 2025-05-06 09:55 | PD.RESPRO ---
Documentation for date of: 05/06/25 Subjective Subjective Interval history: Ronald Garcia is 70 yr male with PMH of HTN, hyperlipidemia, CKD who came to ED after his PCP saw potassium of 6.6 on outpatient labs yesterday. He follows with Dr. Leigh for CKD. He denied getting any dialysis in the past. Today patient also denies any chest pain, SOB, dizziness, dysuria, LE swelling, or constipation. He is compliant with medications. States that his BP is controlled at home. He endorses normal urine output. States that he typically drinks about 5-6 cups of water/day. No major chagnes in diet. Has not had any workup yet for his declining kidney function. Family history significant for kideny disease in his father who did require dialysis. In ED, vitals were stable. CBC stable. CMP showed potassium 6.1, chloride 13.6, BUN 45, Cr 3.1, GFR 21, Mag 1.6, calcium 9.0, UA positive for UTI and hematuria. He was given kayexalate, 5 units insulin, and albuterol while in the ED. Enriquez was placed. Nephrology consulted for hyperkalemia and ENRIQUE. 05/06/25: Patient examined at bedside. No major complaints. Enriquez still in place with good urine output. About 5L in past 24 hrs. Hyperkalemia resolved with potassium 5.0 today. Sodium 143, BUN 41, Cr 2.6, Mg 1.4, bicarb 15. Renal ultrasound showed distanded bladder with bilateral hydronephrosis. Continue bicarb in setting of his non anion gap metabolic acidosis. 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 Urine electrolytes pending. Chloride is 118, continue fluids with 0.45% NS at 145cc/hr. Exam Vital Signs Temp Pulse Resp BP Pulse Ox O2 Del Method 97.1 F 78 18 153/84 H 96 Room Air 05/06/25 08:00 05/06/25 09:11 05/06/25 08:00 05/06/25 09:11 05/06/25 08:00 05/06/25 08:00 Narrative Exam General: middle age appearing male, No acute distress, cooperative HEENT: NCAT, No JVD noted. Mucosa moist. Pupils are equal and reactive to light bilaterally Cardiovascular: Normal S1 and S2. Regular rate and rhythm. Respiratory: Lungs are clear to auscultation bilaterally. No wheezing or crackles heard. Abdomen: Soft, nontender, not distended, normal bowel sounds. : enriquez cath, light urine color Skin: Warm to touch, dry, no rashes noted Musculoskeletal: No gross injuries. Able to move all 4 extremities. No pitting edema Neuro: Alert and oriented x3. No focal neuro deficits. Psych: Normal affect and mood Objective Labs 05/06/25 04:52 05/06/25 12:20 Labs: Laboratory Results - last 24 hr 05/05/25 05/05/25 05/05/25 10:31 11:01 18:40 WBC 9.2 RBC 4.42 L Hgb 13.0 L Hct 40.6 L MCV 92 MCH 29.4 MCHC 32.0 RDW Std Deviation 49.7 H Plt Count 266 Neut % (Auto) 73 Lymph % (Auto) 12 [place] % (Auto) 13 H Eos % (Auto) 1 Baso % (Auto) 1 Neut # (Auto) 6.7 Lymph # (Auto) 1.1 [place] # (Auto) 1.2 H Eos # (Auto) 0.1 Baso # (Auto) 0.1 Immature Gran # (Auto) 0.02 H Absolute Nucleated RBC 0.00 Immature Gran % 0 Nucleated RBC % 0 PT 10.8 INR 1.0 APTT 28.2 Sodium 136 141 Potassium 6.1 H* 5.6 H D Chloride 113 H 117 H Carbon Dioxide 13.6 L* 15.1 L Anion Gap 9 9 BUN 45 H 47 H Creatinine 3.1 H 2.7 H Estim Creat Clear Calc 25.4 L 29.2 L eGFR 21 L 25 L BUN/Creatinine Ratio 15 17 Glucose [address] Glu mg/dL Hemoglobin A1c Calculated Osmolality 283 292 Calcium 9.0 9.6 Corrected Calcium 9.0 9.6 Phosphorus Magnesium 1.6 Total Bilirubin 0.3 0.3 AST 16 20 ALT 24 25 Alkaline Phosphatase 114 107 Troponin I < 0.020 B-Natriuretic Peptide 37 Total Protein 8.0 7.8 Albumin 4.4 4.3 Globulin 3.6 H 3.5 Albumin/Globulin Ratio 1.2 1.2 Triglycerides Cholesterol LDL Cholesterol, Calc HDL Cholesterol Cholesterol/HDL Ratio TSH Ur Collection Type Clean Catch Urine Color [place] A Urine Clarity Cloudy A Urine pH 6.0 Ur Specific [place] 1.008 Urine Protein 1+ A Urine Glucose (UA) Negative Urine Ketones Negative Urine Blood 2+ A Urine Nitrite Negative Urine Bilirubin Negative Urine Urobilinogen (Auto) Negative Ur Leukocyte Esterase Positive Urine RBC 23 H Urine WBC 5786 H Ur Squamous Epith Cells 11 H Urine Bacteria 3+ A Ur Random Creatinine 39 Ur Random Sodium 70.7 05/06/25 04:52 WBC 9.7 RBC 4.27 L Hgb 12.6 L Hct 39.5 L MCV 93 MCH 29.5 MCHC 31.9 RDW Std Deviation 50.1 H Plt Count 228 D Neut % (Auto) 76 Lymph % (Auto) 10 [place] % (Auto) 12 Eos % (Auto) 1 Baso % (Auto) 1 Neut # (Auto) 7.4 Lymph # (Auto) 1.0 [place] # (Auto) 1.2 H Eos # (Auto) 0.1 Baso # (Auto) 0.1 Immature Gran # (Auto) 0.03 H Absolute Nucleated RBC 0.00 Immature Gran % 0 Nucleated RBC % 0 PT 11.1 INR 1.0 APTT 28.7 Sodium 143 Potassium 5.0 D Chloride 118 H Carbon Dioxide 15.1 L Anion Gap 10 BUN 41 H Creatinine 2.6 H Estim Creat Clear Calc 33.1 L eGFR 26 L BUN/Creatinine Ratio [address] Glu mg/dL 126 Hemoglobin A1c 6.0 Calculated Osmolality 294 Calcium 8.7 Corrected Calcium 8.7 Phosphorus 4.3 Magnesium 1.4 L Total Bilirubin 0.4 AST 13 ALT 20 Alkaline Phosphatase 102 Troponin I B-Natriuretic Peptide Total Protein 7.3 Albumin 4.1 Globulin 3.2 Albumin/Globulin Ratio 1.3 Triglycerides 74 Cholesterol 113 L LDL Cholesterol, Calc 55 HDL Cholesterol 43 Cholesterol/HDL Ratio 2.6 L TSH 1.21 Ur Collection Type Urine Color Urine Clarity Urine pH Ur Specific [place] Urine Protein Urine Glucose (UA) Urine Ketones Urine Blood Urine Nitrite Urine Bilirubin Urine Urobilinogen (Auto) Ur Leukocyte Esterase Urine RBC Urine WBC Ur Squamous Epith Cells Urine Bacteria Ur Random Creatinine Ur Random Sodium Quality Measures Quality Measures VTE prophylaxis Advance care planning discussed with:: patient Assessment & Plan Assessment Current Active Medications: Generic Name Dose Route Start Last Admin Trade Name Freq PRN Reason Stop Dose Admin Acetaminophen 650 mg 05/05/25 17:07 Acetaminophen 325 Mg Tablet PO 06/04/25 17:06 Q6H PRN Fever >100 or pain 1-3 Hydrocodone Bitart/Acetaminophen 1 tab 05/05/25 17:12 Hydrocodone/Apap 5/325 Tablet PO 05/10/25 17:11 Q4HR PRN PAIN SCALE 4-6 (Moderate Albuterol/Ipratropium 3 ml 05/05/25 17:07 05/05/25 22:25 Albuterol/Ipratropium (Duoneb) Rt Laly 3 Ml Nebu INH 06/04/25 18:59 3 ml Q6HRRT PRN Administration wheezing Amlodipine Besylate 10 mg 05/06/25 09:00 05/06/25 09:11 Amlodipine Besylate 5 Mg Tablet PO 06/05/25 08:59 10 mg QDAY SINDY Administration Citric Acid/Sodium Citrate 30 ml 05/06/25 09:00 05/06/25 09:11 Citric Acid/Sodium Citr 15 Ml Udc (Bicitra) PO 06/05/25 08:59 30 ml BID SINDY Administration Dextrose 25 ml 05/05/25 12:01 Dextrose 50%-Water Inj 50 Ml Syringe IV 06/04/25 12:00 Q15MIN PRN BG 50-70 responsive npo pt Dextrose 50 ml 05/05/25 12:01 Dextrose 50%-Water Inj 50 Ml Syringe IV 06/04/25 12:00 Q15MIN PRN BG <50 OR BG <70 & pt unresponsive Glucagon 1 mg 05/05/25 12:01 Glucagon Inj 1 Mg Vial IM Q15MIN PRN BG <70, and no IV access Sodium Chloride 1,000 mls @ 125 mls/hr 05/05/25 17:15 05/06/25 02:05 Ns IV 06/04/25 17:14 125 mls/hr .Q8H SINDY Administration Metoprolol Succinate 50 mg 05/06/25 09:00 05/06/25 09:11 Metoprolol Succinate Xl 25 Mg Tabcr PO 06/05/25 08:59 50 mg QDAY SINDY Administration Ondansetron HCl 4 mg 05/05/25 17:07 Ondansetron Inj 2 Mg/Ml Inj 2 Ml IVP 06/04/25 17:06 Q6H PRN NAUSEA OR VOMITING Protocol Sennosides 1 tab 05/05/25 17:07 Senna Tablet PO 06/04/25 17:06 QDAY PRN constipation Protocol Sodium Chloride 3 ml 05/05/25 12:01 05/05/25 13:24 Sodium Chloride Rt Laly 0.9% 3 Ml Nebu INH 06/04/25 12:00 3 ml PRN PRN Administration SOLN Tamsulosin HCl 0.4 mg 05/05/25 21:00 05/05/25 22:23 Tamsulosin Hcl 0.4 Mg Capsule PO 06/04/25 20:59 0.4 mg HS SINDY Administration Plan Ronald Garcia is a 70 year old male with PMHx of HTN, HLD, and CKD presenting with asymptomatic hyperkalemia. #Hyperkalemia-resolving #Complicated UTI #bilateral hydronephrosis #ENRIQUE # Metabolic acidosis-suspect RTA from underlying CKD. Hyperkalemia possibly due to medication (lisinopril) in the setting of ENRIQUE on CKD. CT revealed urinary retention with bilateral hydronephrosis with normal sized prostate. Enriquez placed with significant urine output. Patient denies LUTS, pain, or other symptoms. Denies recent UTI. Vital signs stable. Urinalysis showed evidence of UTI, suspecting as another possible cause of ENRIQUE. Patient was given Kayexalate, Calcium gluconate, albuterol and insulin for the hyperkalemia in ER Outpatient potassium was 6.6, in ED potassium was 6.1. BUN 45, Cr 3.1, GFR 21, Mag 1.6, calcium 9.0. Renal ultrasound showed distanded bladder with bilateral hydronephrosis. Prostate is not enlarged. Chloride is 118, continue fluids with 0.45% NS at 145cc/hr. Plan: -hold lisinopril for now -daily CMP -monitor urine output -strict I/Os -Avoid nephrotoxic agents -Renally dose medication -0.45% NS maintainence fluids 145cc/hr -continue bictira 30ml PO BID #HTN Patient takes amlodpine 10 mg daily, lisinopril 10 mg daily, and metoprolol succinate 50mg daily. -hold lisinopril -resume other medications The patient's management plan was discussed with my attending physician Dr. Shepard. Isabel Cavazos, PGY-2 Attending Provider Attestation/Addendum Patient seen and examined with resident physician Dr. Cavazos. Note reviewed, agree with findings and recommendations with the changes made. Renal coverage for Dr Leigh. Patient with underlying CKD, hypertension, dyslipidemia. Noted hyperchloremic nongap metabolic acidosis with ENRIQUE. Patient treated for hyperkalemia in the ED. potassium today 4.8 Creatinine slowly improving. Switch IV fluids to half NS. Check a urine anion gap. Suspect RTA. Added bicarbonate.
[2025-05-06] MEDS: SODIUM CHLORIDE 0.45 % 1,000 ML 145 ML IV ×3 (10:39→23:59)
[2025-05-06 13:31] LABS: Albumin, Serum 3.7 gm/dL (3.4-4.8); Anion Gap 5 (7-16); BUN/Creatinine Ratio 15 Ratio (12-20); Blood Urea Nitrogen 37 mg/dL (9-23); Calcium 8.3 mg/dL (8.3-10.6); Calcium (Corrected) 8.5 mg/dL (8.5-10.1); Carbon Dioxide 15.7 mMol/L (20.0-31.0); Chloride 118 mMol/L (98-107); Creatinine (Component) 2.4 mg/dL (0.6-1.3); Estimated Creatinine Clearance 35.8 mL/min (>60); Glucose 111 mg/dL (74-106); Osmolality,Calculated 287 (275-295); Phosphorous 3.1 mg/dL (2.4-5.1); Potassium 4.6 mMol/L (3.4-5.1); Sodium 139 mMol/L (136-145); eGFR 28 See Note
[2025-05-06] MEDS: TAMSULOSIN HCL 0.4 MG CAPSULE PO (20:19)
[2025-05-07] VITALS (8 sets, daily range): BP systolic 99–140; BP diastolic 55–74; PULSE 73–90; RESP 18–22; TEMP 36.2–36.4; O2SAT 95–98
[2025-05-07 06:25] LABS: Basophils # (Auto) 0.1 Thou/mm3 (0.0-0.2); Basophils % (Auto) 1 % (0-2.5); Eosinophils # (Auto) 0.2 Thou/mm3 (0.0-0.5); Eosinophils % (Auto) 3 % (0-10); Hematocrit 35.4 % (41.0-53.0); Hemoglobin 11.5 g/dL (13.5-16.0); Immature Granulocytes Auto 0.03 Thou/mm3 (0.00-0.00); Lymphocytes # (Auto) 1.3 Thou/mm3 (1.0-4.8); Lymphocytes % (Auto) 14 % (10-50); Mean Corpuscular HGB Conc 32.5 g/dl (31.0-37.0); Mean Corpuscular Hemoglobin 29.8 pg (25.0-35.0); Mean Corpuscular Volume 92 fL (80-100); Monocytes # (Auto) 1.2 Thou/mm3 (0.0-0.8); Monocytes % (Auto) 13 % (0-12); Neutrophils # (Auto) 6.5 Thou/mm3 (1.8-7.7); Neutrophils % (Auto) 70 % (37-80); Nucleated Red Blood Cell # 0.00 Thou/mm3 (0.00-0.00); Nucleated Red Blood Cell % 0 /100 WBC (0); Platelet Count 198 Thou/mm3 (140-440); RDW Standard Deviation 49.1 fL (35.1-43.9); Red Blood Count 3.86 Miln/mm3 (4.50-5.90); White Blood Count 9.3 Thou/mm3 (3.8-10.6)
[2025-05-07 06:41] LABS: Alanine Aminotransferase 12 U/L (10-49); Albumin, Serum 3.4 gm/dL (3.4-4.8); Albumin/Globulin Ratio 1.2 (1.2-2.2); Alkaline Phosphatase 85 U/L (46-116); Anion Gap 9 (7-16); Aspartate Amino Transferase 11 U/L (0-34); BUN/Creatinine Ratio 13 Ratio (12-20); Bilirubin,Total 0.4 mg/dL (0.3-1.2); Blood Urea Nitrogen 30 mg/dL (9-23); Calcium 8.3 mg/dL (8.3-10.6); Calcium (Corrected) 8.8 mg/dL (8.5-10.1); Carbon Dioxide 17.5 mMol/L (20.0-31.0); Chloride 115 mMol/L (98-107); Creatinine (Component) 2.3 mg/dL (0.6-1.3); Estimated Creatinine Clearance 37.4 mL/min (>60); Globulin 2.9 gm/dL (2.3-3.5); Glucose 87 mg/dL (74-106); Magnesium 1.6 mg/dL (1.6-2.6); Osmolality,Calculated 286 (275-295); Phosphorous 3.0 mg/dL (2.4-5.1); Potassium 4.4 mMol/L (3.4-5.1); Sodium 141 mMol/L (136-145); Total Protein 6.3 gm/dL (5.7-8.2); eGFR 30 See Note
[2025-05-07] MEDS: CITRIC ACID/SODIUM CITR 15 ML UDC (BICITRA) 30 ML PO (09:24)
[2025-05-07] MEDS: METOPROLOL SUCCINATE XL 25 MG TABCR 50 MG PO (09:24)
--- NOTE | 2025-05-07 09:45 | PD.RESPRO ---
Documentation for date of: 05/07/25 Subjective Subjective Interval history: Interval history: Ronald Garcia is 70 yr male with PMH of HTN, hyperlipidemia, CKD who came to ED after his PCP saw potassium of 6.6 on outpatient labs yesterday. He follows with Dr. Leigh for CKD. He denied getting any dialysis in the past. Today patient also denies any chest pain, SOB, dizziness, dysuria, LE swelling, or constipation. He is compliant with medications. States that his BP is controlled at home. He endorses normal urine output. States that he typically drinks about 5-6 cups of water/day. No major chagnes in diet. Has not had any workup yet for his declining kidney function. Family history significant for kideny disease in his father who did require dialysis. In ED, vitals were stable. CBC stable. CMP showed potassium 6.1, chloride 13.6, BUN 45, Cr 3.1, GFR 21, Mag 1.6, calcium 9.0, UA positive for UTI and hematuria. He was given kayexalate, 5 units insulin, and albuterol while in the ED. Enriquez was placed. Nephrology consulted for hyperkalemia and ENRIQUE. 05/06/25: Patient examined at bedside. No major complaints. Enriquez still in place with good urine output. About 5L in past 24 hrs. Hyperkalemia resolved with potassium 5.0 today. Sodium 143, BUN 41, Cr 2.6, Mg 1.4, bicarb 15. Renal ultrasound showed distanded bladder with bilateral hydronephrosis. Continue bicarb in setting of his non anion gap metabolic acidosis. 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 Urine electrolytes pending. Chloride is 118, continue fluids with 0.45% NS at 145cc/hr. 05/07/25: Patient examined at bedisde. no major complaints, enriquez still in place with good UOP clear, 5550 cc in past 24 hrs. Hyperkalemia resolved 4.4 today, Na 141, BUN 30, Cr 2.3. OK to discharge pt from nephro persepective. Exam Vital Signs Temp Pulse Resp BP Pulse Ox O2 Del Method 97.6 F 77 19 140/74 H 96 Room Air 05/07/25 08:00 05/07/25 09:24 05/07/25 08:00 05/07/25 09:24 05/07/25 08:00 05/07/25 08:00 Narrative Exam General: middle age appearing male, No acute distress, cooperative HEENT: NCAT, No JVD noted. Mucosa moist. Cardiovascular: Normal S1 and S2. Regular rate and rhythm. Respiratory: Lungs are clear to auscultation bilaterally. No wheezing or crackles heard. Abdomen: Soft, nontender, not distended, normal bowel sounds. : enriquez cath, light urine color Skin: Warm to touch, dry, no rashes noted Musculoskeletal: No gross injuries. Able to move all 4 extremities. No pitting edema Neuro: Alert and oriented x3. No focal neuro deficits. Psych: Normal affect and mood Objective Labs 05/07/25 05:33 05/07/25 05:33 Labs: Laboratory Results - last 24 hr 05/06/25 05/07/25 12:20 05:33 WBC 9.3 RBC 3.86 L Hgb 11.5 L Hct 35.4 L MCV 92 MCH 29.8 MCHC 32.5 RDW Std Deviation 49.1 H Plt Count 198 D Neut % (Auto) 70 Lymph % (Auto) 14 [place] % (Auto) 13 H Eos % (Auto) 3 Baso % (Auto) 1 Neut # (Auto) 6.5 Lymph # (Auto) 1.3 [place] # (Auto) 1.2 H Eos # (Auto) 0.2 Baso # (Auto) 0.1 Immature Gran # (Auto) 0.03 H Absolute Nucleated RBC 0.00 Immature Gran % 0 Nucleated RBC % 0 Sodium 139 141 Potassium 4.6 4.4 Chloride 118 H 115 H Carbon Dioxide 15.7 L 17.5 L Anion Gap 5 L 9 BUN 37 H 30 H Creatinine 2.4 H 2.3 H Estim Creat Clear Calc 35.8 L 37.4 L eGFR 28 L 30 L BUN/Creatinine Ratio 15 13 Glucose 111 H 87 Calculated Osmolality 287 286 Calcium 8.3 8.3 Corrected Calcium 8.5 8.8 Phosphorus 3.1 3.0 Magnesium 1.6 Total Bilirubin 0.4 AST 11 ALT 12 Alkaline Phosphatase 85 Total Protein 6.3 Albumin 3.7 3.4 Globulin 2.9 Albumin/Globulin Ratio 1.2 Quality Measures Quality Measures VTE prophylaxis Advance care planning discussed with:: patient Assessment & Plan Assessment Current Active Medications: Generic Name Dose Route Start Last Admin Trade Name Freq PRN Reason Stop Dose Admin Acetaminophen 650 mg 05/05/25 17:07 Acetaminophen 325 Mg Tablet PO 06/04/25 17:06 Q6H PRN Fever >100 or pain 1-3 Hydrocodone Bitart/Acetaminophen 1 tab 05/05/25 17:12 Hydrocodone/Apap 5/325 Tablet PO 05/10/25 17:11 Q4HR PRN PAIN SCALE 4-6 (Moderate Albuterol/Ipratropium 3 ml 05/05/25 17:07 05/05/25 22:25 Albuterol/Ipratropium (Duoneb) Rt Laly 3 Ml Nebu INH 06/04/25 18:59 3 ml Q6HRRT PRN Administration wheezing Amlodipine Besylate 10 mg 05/06/25 09:00 05/07/25 09:24 Amlodipine Besylate 5 Mg Tablet PO 06/05/25 08:59 10 mg QDAY SINDY Administration Citric Acid/Sodium Citrate 30 ml 05/06/25 09:00 05/07/25 09:24 Citric Acid/Sodium Citr 15 Ml Udc (Bicitra) PO 06/05/25 08:59 30 ml BID SINDY Administration Dextrose 25 ml 05/05/25 12:01 Dextrose 50%-Water Inj 50 Ml Syringe IV 06/04/25 12:00 Q15MIN PRN BG 50-70 responsive npo pt Dextrose 50 ml 05/05/25 12:01 Dextrose 50%-Water Inj 50 Ml Syringe IV 06/04/25 12:00 Q15MIN PRN BG <50 OR BG <70 & pt unresponsive Glucagon 1 mg 05/05/25 12:01 Glucagon Inj 1 Mg Vial IM Q15MIN PRN BG <70, and no IV access Sodium Chloride 1,000 mls @ 145 mls/hr 05/06/25 10:13 05/06/25 23:59 Ns 0.45% IV 06/05/25 10:12 145 mls/hr .[id number] SINDY Administration Metoprolol Succinate 50 mg 05/06/25 09:00 05/07/25 09:24 Metoprolol Succinate Xl 25 Mg Tabcr PO 06/05/25 08:59 50 mg QDAY SINDY Administration Ondansetron HCl 4 mg 05/05/25 17:07 Ondansetron Inj 2 Mg/Ml Inj 2 Ml IVP 06/04/25 17:06 Q6H PRN NAUSEA OR VOMITING Protocol Sennosides 1 tab 05/05/25 17:07 Senna Tablet PO 06/04/25 17:06 QDAY PRN constipation Protocol Sodium Chloride 3 ml 05/05/25 12:01 05/05/25 13:24 Sodium Chloride Rt Laly 0.9% 3 Ml Nebu INH 06/04/25 12:00 3 ml PRN PRN Administration SOLN Tamsulosin HCl 0.4 mg 05/05/25 21:00 05/06/25 20:19 Tamsulosin Hcl 0.4 Mg Capsule PO 06/04/25 20:59 0.4 mg HS SINDY Administration Plan Ronald Garcia is a 70 year old male with PMHx of HTN, HLD, and CKD presenting with asymptomatic hyperkalemia, now resolved. #Hyperkalemia-Resolved #Complicated UTI #bilateral hydronephrosis #ENRIQUE # Metabolic acidosis-suspect RTA from underlying CKD. Hyperkalemia possibly due to medication (lisinopril) in the setting of ENRIQUE on CKD. CT revealed urinary retention with bilateral hydronephrosis with normal sized prostate. Enriquez placed with significant urine output. Patient denies LUTS, pain, or other symptoms. Denies recent UTI. Vital signs stable. Urinalysis showed evidence of UTI, suspecting as another possible cause of ENRIQUE. Patient was given Kayexalate, Calcium gluconate, albuterol and insulin for the hyperkalemia in ER Outpatient potassium was 6.6, in ED potassium was 6.1. BUN 45, Cr 3.1, GFR 21, Mag 1.6, calcium 9.0. Renal ultrasound showed distanded bladder with bilateral hydronephrosis. Prostate is not enlarged. Chloride is 115, continue fluids with 0.45% NS at 145cc/hr. Plan: -ok to d/c from nephrology standpoint, hyperkalemia resolved. -ok to restart home lisinopril 10 PO qd -daily CMP -monitor urine output -strict I/Os -Avoid nephrotoxic agents -Renally dose medication -0.45% NS maintainence fluids 145cc/hr -continue bictira 30ml PO BID #HTN Patient takes amlodpine 10 mg daily, lisinopril 10 mg daily, and metoprolol succinate 50mg daily. -hold lisinopril ?? -resume other medications Patient case was discussed with attending tinter photograph, Dr. Drea Salvador MD PGY-1, Internal Medicine Attending Provider Attestation/Addendum Patient seen and examined with resident physician Dr. Salvador. Note reviewed, agree with findings and recommendations with the changes made. Renal coverage for Dr Leigh. Patient with underlying CKD, hypertension, dyslipidemia. Noted hyperchloremic nongap metabolic acidosis with ENRIQUE. Patient treated for hyperkalemia in the ED. Suspect RTA. Added bicarbonate. Renal wolfe stable for discharge. Will follow-up with Dr Leigh in 1 to 2 weeks. Patient was discharged with Enriquez. Spoke to Dr. Delgadillo-needs outpatient workup.
--- NOTE | 2025-05-07 09:52 | PC.SS ---
Patient is alert/oriented. Patient was able to verify demographics. Patient was admitted for ENRIQUE. Patient states he resides alone. He's independent with ADL's. Patient states he does not use any DME. No hx: mental illness. No hx: drugs/alcohol. Patient pharmacy: [facility]. Patient receives [employer] disability income and receives food stamps. PCP: Dr. Toure @ [facility]. His last appt. was 2 months ago. Next appt. is on the . Patient states he also follows up with Dr. Leigh. Patient states his alt medical decision maker is his cousin, Heide Ordonez who resides in [place]. Patient did not have her contact number at this time. Discharge plan is to return home. transportation: uber/taxi d/c plan: home Alt medical decision maker: Everett Heide
--- NOTE | 2025-05-07 14:33 | ESDS_ITS ---
<Statement entered by Marleen Tamez DO - 05/08/25 13:16> I, Marleen Tamez DO, attest that I was physically present for the morales portions of the service and evaluated the patient with the resident and I reviewed and discussed the case with the resident and agree with the resident's findings and plans of care as documented above <Statement entered by Brian Nelson MD - 05/08/25 13:03> I have reviewed the note and agree with the resident's assessment & plan with exceptions as below. I have personally reviewed labs, imaging, home meds/prior records, examined the patient, formulated and discussed management plan with the IM team. Patient examined at bedside today. Urology consulted and recommend patient to go well with Enriquez and follow-up outpatient. Will continue patient on sodium bicarb tablets as there was suspicion for renal tubular acidosis, patient will need to follow-up outpatient with nephrology. Patient to go home with Enriquez catheter in which he got home health orders for. Patient's ENRIQUE likely postobstructive uropathy, however there was not significant enlargement of prostate. Patient will continue to follow-up with urology recommendations outpatient, Dr. Garner. Patient was then discharged with the following instructions listed below. Lisinopril stopped due to ENRIQUE, and discussed with nephrology for PCP to resume this medicine. Brian Nelson, PGY-2 Internal Medicine Planned Discharge Date 05/07/25 DS: Providers Provider Date of admission: 05/05/25 17:07 Primary care physician: Antoine Toure([facility]), OUTSOLE BEVELER Admitting Provider: Ran Serrano MD Attending Provider on Admission: Marleen Tamez DO Consults: 05/05/25 14:39 Consult to Nephrology Stat Comment: ENRIQUE Consulting Provider: Mily Shepard 05/07/25 08:43 Consult to Urology Routine Comment: postobstructive ENRIQUE Consulting Provider: Mercedes Garner Attending Provider on DC: Marleen Tamez DO Discharging Provider: Marleen Tamez DO DS: Diagnosis Problem List Completed Was Problem List Reviewed/Reconciled?: Yes Hospital Course Hospital Course Hospital course: Interval history: Ronald Garcia is 70 yr male with PMH of HTN, hyperlipidemia, CKD was admitted at [facility] for ENRIQUE and postobstructive uropathy. PCP labs showed potassium of 6.6 on outpatient labs, came to the ED, found to be 6.1 with BUN 45, Cr 3.1, GFR 21. He was given kayexalate, 5 units insulin, and albuterol while in the ED. Enriquez was placed. Nephrology consulted for ENRIQUE and hyperkalemia. Enriquez output ~12L fluid throughout hospitalization. Patient's BUN and creatinine improved to 30, 2.3, respectively. Urology was consulted who recommended patient to be discharged on Enriquez catheter and to follow-up outpatient. Patient's creatinine improved throughout admission. RTA suspected, was discharged with bicarbonate. Patient was then discharged with the following instructions listed below. Imaging: -CT AP: Moderate to advanced bilateral hydronephrosis with markedly distended urinary bladder. Normal sized prostate -UA positive for UTI and hematuria. -Renal ultrasound showed distanded bladder with bilateral hydronephrosis. Discharge Instructions Follow up with your doctor within one week from discharge Use medications as prescribed Follow up with a urologist within one week from discharge Keep the Enriquez catheter to leg bag in until you visit your doctor or the urologist. You will need Voiding trails. Use Flomax 0.4mg once daily per mouth. Follow up with the Pump House Operator Dr. Leigh within one week from discharge to monitor you clinical improvement. I am starting you a new medicine called sodium bicarbonate, take this as prescribed and speak with your kidney doctor, Dr. Leigh about this. I am stopping your lisinopril at this time due to your kidney function at this time Perform a lab test within one week of discharge, I am giving you a lab slip. This is to monitor your kidney function before you follow up with your kidney doctor Return to the ER if your symptoms worsen or return Problem list: # ENRIQUE #Postobstructive uropathy #Complicated UTI #Bilateral hydronephrosis #ENRIQUE #Metabolic acidosis-suspect RTA from underlying CKD. #HTN Patient plan of care was discussed with the attending physician, Dr. Tamez and my senior resident, Dr. Omar Escalona MD PGY-1 Time Spent with Patient Time attestation: Total time spent providing and/or coordinating discharge services: Time spent: Greater than 30 minutes Home Health Home Health Referral Orders: 05/07/25 14:06 Home Health Referral Routine Reason For Exam: urinary retention Home-Bound The patient must either because of illness or injury, need the aid of supportive devices such as crutches, canes, wheelchairs, and walkers; the use of special transportation; or the assistance of another person in order to leave their place of residence; OR have a condition such that leaving his or her home is medically contraindicated. In addition, the patient also meets the following criteria: patient is normally unable to leave the home and leaving home requires considerable taxing effort. Addendum to Home Health Certification Practitioner's Certification: I certify that the patient has been under my care in the hospital and the care of attending physician (see below). We had a [id number] encounter on (see date below). My clinical findings indicate that the patient is home bound per the above criteria and the Home Health Services noted in these orders are medically necessary. The primary reason for the [id number] encounter is related to the fact that the patient requires home health services. Date Certifying Geoe-ay-Qlne Physician Encounter: 05/05/25 Physician's Name who will Assume Oversight for HH Services: Antoine Toure([facility]) [employer]ATION MANAGER - Community Resources: No PT to Evaluate: No PT to evaluate and provide a treatmnet plan to increase patient's mobility and strength. Wound Care: No IV Therapy: No RN Safety Evaluation: Yes: enriquez management RN to evaluate and create a plan of care that will produce positive outcomes. Palliative Treatment: No Palliative treatment and evaluate the need for hospice. Home Health Aide - Personal Care: Yes Home Health Aide to assist with any ADL's. Exam Vital Signs Temp Pulse Resp BP Pulse Ox O2 Del Method 97.6 F 90 18 113/73 97 Room Air 05/07/25 12:05/07/25 12:05/07/25 12:05/07/25 12:05/07/25 12:05/07/25 12:00 Narrative Exam General: middle age appearing male, No acute distress, cooperative HEENT: NCAT, No JVD noted. Mucosa moist. Cardiovascular: Normal S1 and S2. Regular rate and rhythm. Respiratory: Lungs are clear to auscultation bilaterally. No wheezing or crackles heard. Abdomen: Soft, nontender, not distended, normal bowel sounds. : enriquez cath, light urine color Skin: Warm to touch, dry, no rashes noted Musculoskeletal: No gross injuries. Able to move all 4 extremities. No pitting edema Neuro: Alert and oriented x3. No focal neuro deficits. Psych: Normal affect and mood Discharge Plan Plan Patient Disposition: Home w/HOME HEALTH Patient condition on transfer: Stable Care Plan Goals: Follow up with your doctor within one week from discharge Use medications as prescribed Follow up with a urologist within one week from discharge Keep the Enriquez catheter to leg bag in until you visit your doctor or the urologist. You will need Voiding trails. Use Flomax 0.4mg once daily per mouth. Follow up with the Pump House Operator Dr. Leigh within one week from discharge to monitor you clinical improvement. I am starting you a new medicine called sodium bicarbonate, take this as prescribed and speak with your kidney doctor, Dr. Leigh about this. I am stopping your lisinopril at this time due to your kidney function at this time Perform a lab test within one week of discharge, I am giving you a lab slip. This is to monitor your kidney function before you follow up with your kidney doctor Return to the ER if your symptoms worsen or return Prescriptions/Referrals Prescriptions/Med Rec: New sodium bicarbonate 325 mg tablet 325 mg PO QDAY 30 Days Qty: 30 0RF Rx Instructions: Take one tablet by mouth every day amoxicillin-pot clavulanate 875-125 mg tablet 1 tab PO BID 5 Days Qty: 10 0RF Rx Instructions: Take one tablet by mouth twice a day Continued metoprolol succinate 50 mg tablet extended release 24 hr 50 mg PO DAILY Patient Comments: take 1 tablet by mouth once daily amlodipine 10 mg Tablet 10 mg PO QDAY Discontinued simvastatin 20 mg tablet 20 mg PO DAILY Patient Comments: take 1 tablet by mouth at bedtime lisinopril 10 mg tablet 10 mg PO DAILY Patient Comments: take 1 tablet by mouth once daily Referrals: Mercedes Garner MD [Physician] - Orly Leigh MD [Physician] - [place]fin([facility])Antoine NP [Primary Care Provider] - Outpatient Orders (i.e. Home Health, Labs, Imaging): Renal Function Panel (Routine) Timeframe: 1 Week Location: Determined by Patient Ordered By: Brian Nelson Patient/Caregiver Discharge Instructions Discharge Activity: activity as tolerated Education Materials: Acute Kidney Failure Dc, Benign Prostatic Hyperplasia Print Language: Arabic Stand Alone Forms: [place] Award Info., Patient Portal Info Letter Discharge Order Discharge Orders: Discharge (Routine); Ordered 05/07/25 Ordered By: Brian Nelson Quality Discharge Quality Measures VTE prophylaxis
[2025-05-07 15:34] LABS: Chloride,Urine Random 63.7 mMol/L (55.0-125.0); Potassium,Urine Random 11 mMol/L (12-62); Sodium,Urine Random 70.2 mMol/L (20.0-110.0)
--- NOTE | 2025-05-08 10:44 | PC.CC ---
Addendum entered by Polo Man RN 05/08/25 14:47: Patient refused home health services. Referral cancelled and Dr. Tamez notified. Original Note: Booked with [facility], SOC within 48 hrs of discharge.
--- NOTE | 2025-05-11 07:40 | UCCONSULT_ITS ---
RE: YASMANI CHO : 1955 DATE OF CONSULTATION: 05/07/2025 ESTABLISHED DIAGNOSES: 1. BPH. 2. ENRIQUE 2/2 postobstructive uropathy with bilateral hydronephrosis. 3. Hypertension. 4. Diabetes mellitus type 2. 5. Hyperkalemia. HISTORY OF PRESENT ILLNESS: This is a 70-year-old gentleman who is admitted in the hospital through the emergency room. The patient was examined by me in the hospital with my MARosaline. This patient denies any prostatic problem before. He denies any prostatic surgery and he is currently not on any medication. This patient has chronic kidney disease. He is being seen by Dr. Leigh. This patient has the placement of Jones catheter in the emergency room with a very large residual urine. His serum potassium is 6.1 in the emergency room. The patient had ultrasound of both kidneys done. This revealed bilateral hydronephrosis and a giant prostate gland. He has no history of fever, chills, gross hematuria or dysuria. Past medical history, family history, review of the system and personal history, please refer to patient history form dated 05/07/2025 and 05/05/2025. It is in HPI in EMR. He had a CAT scan of the abdomen and pelvis. This revealed advanced bilateral hydronephrosis with markedly distended bladder. He had a placement of Jones catheter. There was large residual urine. REVIEW OF SYSTEMS: All systems reviewed within normal except as documented in HPI. FAMILY HISTORY: He has family history of prostate cancer. PAST MEDICAL HISTORY: He has genomic testing done and this showed low risk for prostate cancer. He is status post appendectomy. SOCIAL HISTORY: Denies alcohol use. PHYSICAL EXAMINATION: GENERAL: The patient is not in any acute distress. He is lying comfortably in bed. Condition is satisfactory. Orientation x3. HEENT: Normocephalic and atraumatic. Eyes: No anemia or jaundice. NECK: His neck is supple. Trachea is central. Thyroid is not enlarged. EXTREMITIES: Reveal no edema, cyanosis or clubbing. VITAL SIGNS: Vital signs are stable. They are in HPI in EMR. He has indwelling Jones catheter connected to the drainage bag. He had good urinary output since morning. VARIOUS LABS: Serum sodium is 136, potassium is 6.1, chloride 113, carbon dioxide 13.6, BUN 45, creatinine 3.1. RECOMMENDATIONS: Continue with catheter drainage. Repeat his ultrasound of the kidney in 2 weeks' time to see if his kidneys are decompressing. Start on Flomax 0.4 mg p.o. daily. Watch intake and output and he is going to be seen by me in urology office. He is going to have a PSA, ultrasound of the prostate gland and cystoscopic examination. Depending upon these tests, I will make further recommendations. All above issues were discussed with the patient in detail. Questions answered to his satisfaction. He verbalized understanding. DT: 15:28:29 TT: 01:41:00 Ref: [id number] - TID: [id number]
== END 2025-05-07 17:04 | disposition home health service (06) | DRG 683 ==
LOC: SERX 15:26 → SERHOLD 05-06 05:42 → S3SX 05-06 05:42
PROVIDERS: Internal Medicine; Nurse Practitioner Family; Admitting Provider Internal Medicine; Emergency Provider Emergency Medicine; PCP Nurse Practitioner Family; Visit Provider Internal Medicine
DX: N17.9 Acute kidney failure, unspecified (principal); E87.20 Acidosis, unspecified; N13.6 Pyonephrosis; E87.5 Hyperkalemia; N13.9 Obstructive and reflux uropathy, unspecified; I12.9 Hypertensive chronic kidney disease with stage 1 through stage 4 chronic kidney disease, or unspecified chronic kidney disease; E11.22 Type 2 diabetes mellitus with diabetic chronic kidney disease; N18.9 Chronic kidney disease, unspecified; N28.1 Cyst of kidney, acquired; E78.5 Hyperlipidemia, unspecified; E86.9 Volume depletion, unspecified; E87.8 Other disorders of electrolyte and fluid balance, not elsewhere classified; N40.0 Benign prostatic hyperplasia without lower urinary tract symptoms; R31.9 Hematuria, unspecified; Z90.49 Acquired absence of other specified parts of digestive tract; Z79.899 Other long term (current) drug therapy; Z66 Do not resuscitate
CPT/HCPCS: 36415; 74176; 76770; 80053; 80061; 80069; 81001; 82436; 82570; 83036; 83735; 83880; 84100; 84133; 84300; 84443; 84484; 85025; 85610; 85730; 87086; 93005; 93225; 94640; 96361; 96365; 99284; A9270; J0612; J0696; J1815; J7030; J7609

== ENCOUNTER → 2025-09-09 | Outpatient (CLI) | payer MEDICARE, MEDICAID, SELFPAY ==
[2025-09-09 12:45] LABS: Prostate Specific Antigen < 0.10 ng/mL (0-4.00)
== END | disposition home or self-care (01) ==
LOC: COPL 11:33
PROVIDERS: PCP Nurse Practitioner Family; Referring Provider Surgery; Visit Provider Surgery
DX: N40.1 Benign prostatic hyperplasia with lower urinary tract symptoms (principal)
CPT/HCPCS: 36415; 84153